=== PATIENT | female | born 1960 | race Caucasian/White ===

== ENCOUNTER 2021-07-02 10:04 | Outpatient (REF) | payer MEDICAID, SELFPAY ==
--- NOTE | ~2021-07-02 | MM_ITS ---
EXAMINATION: MM SCREENING DIGITAL BREAST TOMOSYNTHESIS, BILATERAL CLINICAL INFORMATION: Screening. Asymptomatic. The lifetime risk of breast cancer based on the Tyrer-Cuzick Model is 7%. COMPARISON: Outside mammography: 04/30/2017 ([facility]). TECHNIQUE: Digital breast tomosynthesis is performed in both the craniocaudal and mediolateral oblique views along with computer-aided detection (CAD). Synthesized 2D images are generated from the tomosynthesis. FINDINGS: The breasts are almost entirely fatty (ACR BI-RADS breast composition Category a). Background stromal and fibroglandular densities are stable. There is incidental intramammary node posterior upper outer left breast similar to outside exam. There are scattered predominantly vascular and some benign punctate round calcifications again seen. The axilla and skin contours are unremarkable. MM/MM tomosynthesis screening BI IMPRESSION: No mammographic evidence of malignancy. ASSESSMENT: BI-RADS 2: Benign RECOMMENDATION: Routine annual mammography screening. This patient's information was entered into a reminder system with a target due date for their next mammogram.
== END 2021-07-02 10:05 | disposition home or self-care (01) ==
LOC: HO.MAMMO 10:04
PROVIDERS: PCP Internal Medicine; Visit Provider Internal Medicine
DX: Z12.31 Encounter for screening mammogram for malignant neoplasm of breast (principal)
CPT/HCPCS: 77063; 77067

== ENCOUNTER 2023-02-02 16:23 | Outpatient (REF) | payer MEDICAID, SELFPAY | END 2023-02-02 16:24 | disposition home or self-care (01) | LOC: HO.CHCLNP 16:23 | PROVIDERS: Visit Provider Internal Medicine | DX: R35.0 Frequency of micturition (principal) | CPT/HCPCS: 87086; 87088; 87186 ==

== ENCOUNTER 2023-04-24 13:42 | Outpatient (REF) | payer MEDICARE, MEDICAID, SELFPAY ==
--- NOTE | ~2023-04-24 | MM_ITS ---
EXAMINATION: BONE DENSITOMETRY CLINICAL INDICATION: Unspecified menopausal and perimenopausal disorder. COMPARISON: This is the patient's baseline examination. TECHNIQUE: Using a Zoyi DXA System (software version: 13.1) manufactured by [employer], dual-energy x-ray absorptiometry was performed of the lumbar spine and left hip. The images are of good technical quality. Summary results are attached. FINDINGS: LEFT FEMUR, NECK: BMD 0.799 g/cm2, Z-score -0.5, T-score -1.7, osteopenia. LEFT FEMUR, TOTAL: BMD 0.851 g/cm2, Z-score -0.3, T-score -1.2, osteopenia. AP SPINE L1-L3 (excluding L4): The data of L1-L4 has been changed to exclude the L4 vertebral body, because degenerative sclerosis at this level may cause overestimation of lumbar spine density. BMD 0.854 g/cm2, Z-score -1.4, T-score -2.6, osteoporosis. IDENTIFIED RISK FACTORS: Low calcium intake, menopause, recurrent falls. HISTORY OF FRACTURE: None listed. MEDICATIONS: Calcium. MM/XR DEXA axial skeleton IMPRESSION: 1. DIAGNOSIS: Osteoporosis based on the lowest T-score value of -2.6 in the lumbar spine applying World Health Organization criteria. 2. 10-YEAR FRACTURE RISK PREDICTION, FRAX: According to the guidelines, FRAX calculation should only be performed on patients in the osteopenia bone density category. Therefore, FRAX was not performed on this patient. 3. Treatment Recommendations: NOF guidelines recommend consideration for treatment in postmenopausal women and men age 50 and older presenting with the following: -A hip or vertebral (clinical or morphometric) fracture. -T-score less than or equal to -2.5 at the femoral neck or spine after appropriate evaluation to exclude secondary causes. -Low bone mass at the hip or spine and a 10-year fracture probability by FRAX of greater than or equal to 3% for hip fracture or greater than or equal to 20% for major osteoporotic fracture based on the [place] adapted WHO algorithm. 4. Other Recommendations: All treatment decisions require clinical judgment and consideration of individual patient factors, including patient preferences, comorbidities, previous drug use, risk factors not captured in the FRAX model (e.g. frailty, falls, vitamin D deficiency, increased bone turnover, interval significant decline in bone density) and possible under or overestimation of fracture risk by FRAX. Additional medical evaluation for secondary cause of low bone mineral density may be appropriate. FUTURE SCAN RECOMMENDATION: People with diagnosed cases of osteoporosis or at high risk for fracture should have regular bone mineral density tests. For patients eligible for Medicare, routine testing is allowed once every 2 years. The testing frequency can be increased to one year for patients who have rapidly progressing disease, those who are receiving or discontinuing medical therapy to restore bone mass, or have additional risk factors.
--- NOTE | ~2023-04-24 | MM_ITS ---
EXAMINATION: MM SCREENING DIGITAL BREAST TOMOSYNTHESIS, BILATERAL CLINICAL INFORMATION: Screening. Asymptomatic. COMPARISON: Mammography: This study is compared with prior exams dating back to 2015. TECHNIQUE: Digital breast tomosynthesis is performed in both the craniocaudal and mediolateral oblique views along with computer-aided detection (CAD). Synthesized 2D images are generated from the tomosynthesis. FINDINGS: The breasts are almost entirely fatty (ACR BI-RADS breast composition Category a). There are no significant masses, abnormal calcifications, or other abnormalities. MM/MM tomosynthesis screening BI IMPRESSION: No mammographic evidence of malignancy. ASSESSMENT: BI-RADS BI-RADS 1 - Negative RECOMMENDATION: Routine annual mammography screening. 1 year F/U This examination should not preclude the clinical evaluation of a suspicious palpable abnormality. This patient's information was entered into a reminder system with a target due date for their next mammogram.
== END 2023-04-24 13:43 | disposition home or self-care (01) ==
LOC: HO.MAMMO 13:42
PROVIDERS: PCP Internal Medicine; Visit Provider Advanced Practice Midwife
DX: Z12.31 Encounter for screening mammogram for malignant neoplasm of breast (principal); Z13.820 Encounter for screening for osteoporosis; Z78.0 Asymptomatic menopausal state
CPT/HCPCS: 77063; 77067; 77080

== ENCOUNTER → 2023-04-24 14:30 | Outpatient (BNV) | payer MEDICARE, MEDICAID, SELFPAY | PROVIDERS: PCP Internal Medicine; Visit Provider Radiology Diagnostic Radiology | DX: Z12.31 Encounter for screening mammogram for malignant neoplasm of breast (principal) | CPT/HCPCS: 77063; 77067 ==

== ENCOUNTER 2023-08-31 11:06 | Outpatient (REF) | payer MEDICARE, MEDICAID, SELFPAY ==
[2023-08-31 15:25] LABS: Iron 37 mcg/dL (30-160); Percent Iron Saturation 11 % (15-50); Total Iron Binding Capacity 326 mcg/dL (228-428); Unsaturated Iron Binding 289 ug/dL
[2023-08-31 15:31] LABS: Ferritin 19 ng/mL (10-250)
[2023-08-31 16:04] LABS: Folate 6.2 ng/mL (> or = 4.0); Vitamin B12 386 pg/mL (200-900)
== END 2023-08-31 11:07 | disposition home or self-care (01) ==
LOC: HO.CHCLDS 11:06
PROVIDERS: Visit Provider Internal Medicine
DX: D64.9 Anemia, unspecified (principal)
CPT/HCPCS: 36415; 82607; 82728; 82746; 83540

== ENCOUNTER 2023-09-28 11:12 | Outpatient (AMB) | payer MEDICARE, MEDICAID, SELFPAY ==
--- NOTE | 2023-09-28 11:13 | MHC.OFFVIS ---
Vital Signs 09/28/23 11:21 Height 5 ft Weight 160 lb 14.999 oz BMI 31.4 BP 138/68 Blood Pressure Location Lt brachial Position Sitting Pulse 52 Intake Visit Reasons: gastritis Intake Note: Samantha presents to in office visit today as a new patient for gastritis. CC: Patient c/o epigastric pain, and generalized abdominal pain after eating for many years . She reports hx of H. pylori that was treated and taking Prilosec for many years in the past. She states that about 9 years ago she had an episode of waking up very dizzy and after eating oatmeal vomiting a lot of blood and having to be transfused at the hospital after that. She also c/o constipation. Last colonoscopy at [facility] about a year ago per PT. Electronic Design Engineer Required: Yes Accompanied by: Self / Same As Patient Allergies acetaminophen [Percocet] Allergy (Unknown, Verified 09/28/23 11:34) Hallucinations oxycodone Allergy (Unknown, Verified 09/28/23 11:34) Hallucinations sulindac Allergy (Unknown, Verified 09/28/23 11:34) Hives HPI Comments Details: 63 y.o F who is here for abd pain x years. Reports that >10 y ago had similar abd pain for which she underwent assessment in [place] as well as [facility] and was told she had gastritis and ulcers. Had an EGD at that time as well. Now has returned for the past few years. Reports it is mostly epigastric and goes to flanks. Worse with food intake and at night. Has been given sucralfate by her PCP but not helping as much. Pt also takes meloxicam 15 daily for her arthritis and fibromylagia. [facility] Surgical History (Updated 09/28/23 @ 11:35 by TEDDY Oswald) H/O gastric bypass H/O tubal ligation H/O colonoscopy Family History (Updated 09/28/23 @ 11:36 by TEDDY Oswald) Father Colon cancer Breast cancer Paternal Aunt Breast cancer Sister Breast cancer Sister Colon cancer Social History (Updated 09/28/23 @ 11:38 by TEDDY Oswald) Alcohol intake: former Comment: no alcohol for 40+ years Patient Tobacco Use Status: Former Tobacco user Non Cigarette Tobacco use Quit date or years: 40 years Physical Exam Vital Signs: Last Vital Signs Pulse 52 09/28/23 11:21 BP 138/68 09/28/23 11:21 BMI result Body Mass Index 31.4 NAD Nonicteric Abd soft nondistended A/Ox3, normal gait Hyperpigmentation on face, arms Assessment & Plan Assessment & Plan (1) Abdominal pain: Code(s): R10.9 - Unspecified abdominal pain Category: Medical (2) Gastritis: Code(s): K29.70 - Gastritis, unspecified, without bleeding Category: Medical Plan Ddx include PUD, gastritis, symptomatic gallstones. Plan: - EGD to be booked - Start PPI in the meantime will given ongoing NSAID use - US Abd - Lab work as below Follow up after testing completed Orders: Orders Complete Blood Count no Diff Today K29.70 - Gastritis, unspecified, without bleeding Liver Panel Today R10.9 - Unspecified abdominal pain Immunoglobulin A Today R10.9 - Unspecified abdominal pain US abdomen complete Today R10.9 - Unspecified abdominal pain Transglutaminase IgA Today R10.9 - Unspecified abdominal pain Medications: New omeprazole 20 mg PO DAILY 90 caps 0RF K29.70 - Gastritis, unspecified, without bleeding Coding Level of Care Code New Pt Level 4 (23506) Diagnoses Abdominal pain R10.9 Gastritis K29.70
[2023-09-28 11:21] VITALS: BP 138/68; PULSE 52; BMI 31.4
== END 2023-09-28 12:26 | disposition home or self-care (01) ==
PROVIDERS: PCP Internal Medicine; Visit Provider Internal Medicine
DX: R10.9 Unspecified abdominal pain (principal); K29.70 Gastritis, unspecified, without bleeding
CPT/HCPCS: 99204

== ENCOUNTER → 2023-09-28 11:12 | Outpatient (BNVA) | payer MEDICARE, MEDICAID, SELFPAY | PROVIDERS: PCP Internal Medicine; Visit Provider Internal Medicine | DX: K29.70 Gastritis, unspecified, without bleeding (principal) | CPT/HCPCS: 99202 ==

== ENCOUNTER 2023-10-05 13:06 | Outpatient (AMB) | payer OTHER, MEDICAID, SELFPAY ==
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
[2023-10-05 13:54] VITALS: BP 144/71; PULSE 58; RESP 18; O2SAT 100; BMI 32.1
== END 2023-10-05 14:23 | disposition home or self-care (01) ==
PROVIDERS: PCP Internal Medicine; Referring Provider Internal Medicine; Visit Provider Registered Nurse Emergency
DX: M54.16 Radiculopathy, lumbar region (principal)
CPT/HCPCS: 99204

== ENCOUNTER → 2023-10-05 13:06 | Outpatient (BNVA) | payer OTHER, MEDICAID, SELFPAY | PROVIDERS: PCP Internal Medicine; Referring Provider Internal Medicine; Visit Provider Registered Nurse Emergency ==

== ENCOUNTER 2023-10-08 10:02 | Outpatient (REF) | payer OTHER, MEDICAID, SELFPAY ==
--- NOTE | ~2023-10-08 | US_ITS ---
EXAMINATION: US ABDOMEN COMPLETE CLINICAL INFORMATION: Unspecified abdominal pain. COMPARISON: None available. TECHNIQUE: Real-time imaging of the abdominal viscera. Technically limited study secondary to body habitus. FINDINGS: PANCREAS: Limited visualization due to bowel gas. ABDOMINAL AORTA: Unremarkable. INFERIOR VENA CAVA: Visualized portions are normal. LIVER: Increased hepatic parenchymal heterogeneity and echogenicity could be associated with hepatocellular disease/hepatic steatosis and substantially limits visualization. Correlation with liver function tests and clinical exam recommended to determine further management. The liver contour is normal. GALLBLADDER: Multiple gallstones. No gallbladder wall thickening. COMMON BILE DUCT: Measures 0.6 cm in diameter. RIGHT KIDNEY: No hydronephrosis. No renal calculi. Limited visualization. The kidney measures 10.4 cm in maximum dimension. LEFT KIDNEY: 1.2 cm left mid pole cyst with benign features. There is no indication for follow-up imaging. No hydronephrosis or renal calculi. The kidney measures 8.7 cm in maximum dimension. SPLEEN: 1.4 x 1.3 x 1.3 cm hypoechoic soft tissue mass adjacent to the spleen is characteristic of a splenule. The spleen measures 8.5 cm in maximum dimension. FREE FLUID: None. US/US abdomen complete IMPRESSION: 1. Increased hepatic parenchymal heterogeneity and echogenicity could be associated with hepatocellular disease/hepatic steatosis and substantially limits visualization. Correlation with liver function tests and clinical exam recommended to determine further management. 2. Cholelithiasis. 3. A 1.4 cm hypoechoic soft tissue mass adjacent to the spleen is characteristic of a splenule.
== END 2023-10-08 10:03 | disposition home or self-care (01) ==
LOC: HO.US 10:02
PROVIDERS: PCP Internal Medicine; Visit Provider Internal Medicine
DX: R10.9 Unspecified abdominal pain (principal)
CPT/HCPCS: 76700

== ENCOUNTER 2024-03-05 19:06 | Outpatient (REF) | payer OTHER, SELFPAY | END 2024-03-05 19:07 | disposition home or self-care (01) | LOC: HO.LNP 19:06 | PROVIDERS: Visit Provider Nurse Practitioner | DX: R30.0 Dysuria (principal) | CPT/HCPCS: 87086 ==

== ENCOUNTER 2024-03-13 16:10 | Outpatient (REF) | payer OTHER, SELFPAY ==
[2024-03-13 18:06] LABS: Alanine Aminotransferase 20 U/L (0-31); Albumin Level 4.2 g/dL (3.5-5.0); Alkaline Phosphatase 79 U/L (39-117); Anion Gap 12 (12-20); Aspartate Amino Transferase 23 U/L (5-31); Bilirubin Direct 0.1 mg/dL (0.0-0.5); Bilirubin Total 0.4 mg/dL (0.0-1.0); Blood Urea Nitrogen 9 mg/dL (9-16); Calcium 9.8 mg/dL (8.4-10.2); Carbon Dioxide 23 mmol/L (22-29); Chloride 110 mmol/L (96-108); Estimated Glomerular Filt Rate > 60; Glucose Random 107 mg/dL (60-115); Potassium 4.5 mmol/L (3.3-5.1); Sodium 140 mmol/L (135-145); Total Protein 7.3 g/dL (6.5-8.0)
== END 2024-03-13 16:11 | disposition home or self-care (01) ==
LOC: HO.CHCLDS 16:10
PROVIDERS: PCP Internal Medicine; Visit Provider Nurse Practitioner
DX: R82.90 Unspecified abnormal findings in urine (principal)
CPT/HCPCS: 36415; 80048; 80076

== ENCOUNTER 2024-10-06 12:47 | Outpatient (AMB) | payer OTHER, SELFPAY ==
--- NOTE | 2024-10-06 12:52 | MHC.OFFVIS ---
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/coronary arteriosclerosis Order Control Clerk Blood Bank Required: Yes Order Control Clerk Blood Bank Name: ISAAC [id number] Allergies acetaminophen [Percocet] Allergy (Unknown, Verified 09/28/23 11:34) Hallucinations oxycodone Allergy (Unknown, Verified 09/28/23 11:34) Hallucinations sulindac Allergy (Unknown, Verified 09/28/23 11:34) Hives Medication List - Last Reconciled 10/06/24 by Jesus Prieto MD albuterol sulfate 90 mcg/actuation inhalation amlodipine 5 mg PO DAILY atorvastatin 40 mg PO DAILY ferrous gluconate 324 mg PO QAM fluticasone propionate 44 mcg/actuation inhalation fluticasone propionate 50 mcg/actuation 1 - 2 sprays intranasal QAM levothyroxine 88 mcg PO DAILY losartan 25 mg PO DAILY meloxicam 15 mg PO DAILY metformin 1,000 mg PO metoprolol succinate ER 100 mg PO BID omeprazole 20 mg PO DAILY sennosides (senna) 8.6 mg PO BID PRN sertraline 100 mg PO DAILY sucralfate 1 g PO QID tizanidine mg PO topiramate 25 mg PO BID triamcinolone acetonide 0.1% appl topical HPI Comments Details: Samantha is here for consultation regarding coronary artery disease. Apparently, she had a myocardial infarction in 2008 and had cardiac catheterization but we do not have any information as to what was done. She states that she has been having chest pains for years. This can happen any time. Seems to be with and without exertion. Also gets worse with breathing. During those times, she may feel short of breath and may also feel dizzy. [facility] Medical History (Updated 10/06/24 @ 13:37 by Jesus Prieto MD) Varicose veins of both lower extremities Osteoporosis Spinal stenosis in cervical region Posterior ischemic optic neuropathy Osteopenia Microalbuminuria Asthma Obesity Hypothyroidism Depression Cerebrovascular accident Primary hypertension Diabetes Surgical History (Updated 09/28/23 @ 11:35 by TEDDY Oswald) H/O gastric bypass H/O tubal ligation H/O colonoscopy Family History (Updated 09/28/23 @ 11:36 by TEDDY Oswald) Father Colon cancer Breast cancer Paternal Aunt Breast cancer Sister Breast cancer Sister Colon cancer Social History (Updated 09/28/23 @ 11:38 by TEDDY Oswald) Alcohol intake: former Comment: no alcohol for 40+ years Patient Tobacco Use Status: Former Tobacco user Review of Systems Const Denies weakness ENT Denies dizziness Card Reports chest pain, Denies chest pain with activity, Denies syncope, Denies rapid heart rate, Denies pedal edema, Denies edema, Denies leg edema, Denies lightheadedness, Reports palpitations, Reports dyspnea, Denies dyspnea on exertion and Denies orthopnea Resp Denies cough, Reports dyspnea and Denies dyspnea on exertion GI Denies hematochezia and Denies change in stool character Musc Denies abnormal gait, Denies muscle cramps, Denies muscle weakness, Denies numbness, Denies radiating pain into limb and Denies tingling Neuro Denies abnormal gait, Denies dizziness, Denies syncope, Denies numbness, Denies tingling and Denies weakness Endo Reports palpitations Physical Exam Vital Signs: Last Vital Signs Pulse 87 10/06/24 12:53 BP 118/70 10/06/24 12:53 BMI result Body Mass Index 32.7 Assessment & Plan Assessment & Plan (1) Precordial chest pain: Code(s): R07.2 - Precordial pain Category: Medical (2) Diabetes: Code(s): E11.9 - Type 2 diabetes mellitus without complications Category: Medical (3) Primary hypertension: Code(s): I10 - Essential (primary) hypertension Category: Medical Plan Patient describes history of prior coronary disease/ID with unknown anatomy; longstanding atypical sounding chest pain with associated shortness of breath and dizziness. In a prior exercise stress echocardiogram from [facility] 2022, described to have EKG changes diagnostic of ischemia. Fair exercise capacity but no echocardiographic evidence of ischemia. There was chronotropic incompetence. She had reached 5.2 METS. We will perform comprehensive workup with an echocardiogram and pharmacological stress test with Lexiscan. Further plan pending the above. Orders: Orders CA lexiscan stress w dennise Today R07.2 - Precordial pain NM cardiolite stress test Today R07.2 - Precordial pain CA echo transthoracic complete Today I25.10 - Atherosclerotic heart disease of [place] coronary artery without angina pectoris, R07.2 - Precordial pain Coding Level of Care Code New Pt Level 4 (83150) Complex EM visit Add On G2211 Diagnoses Precordial chest pain R07.2 Diabetes E11.9 Primary hypertension I10
[2024-10-06 12:53] VITALS: BP 118/70; PULSE 87; BMI 32.7
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
--- OUTSIDE RECORDS SUMMARY | 2024-10-06 13:00 | XMS_ITS | Clinical Summary ---
Author Organization [employer] [facility] ity Address [address] [place] [address] Care Team Providers Care Bread Pan Greaser Name Role Phone Unavailable Primary Care Provider Unavailabl e Social History Tobacco Use Types Packs/Day Years Used Date Smoking Tobacco: Never Assessed Comments Unknown Sex and Gender Information Value Date Recorded Sex Assigned at Not on file Legal Sex Female 4:47 PM EST Gender Identity Not on file Sexual Orientation Not on file Plan of Treatment Health Maintenance Due Date Last Done Comments Breast Cancer Screening 1960 DTaP,Tdap,and Td Vaccines (1 - Tdap) 1977 Pneumococcal Vaccine: 50+ Ye ars (1 of 1 - PCV) 2008 Zoster Vaccines (1 of 2) 2008 Colorectal Cancer Screening: Colonoscopy 04/19/2022 Depression Screening 04/19/2022 Hepatitis C Screening 04/19/2022 Osteoporosis Screening (Bone Density Screening) 04/19/2022 Social Influencers of Health Screening 04/19/2022 Falls Risk Assessment 2023 COVID-19 Vaccine ( - 2023-2 5 season) 2024 Influenza Vaccine (Season Ended) 2025 RSV Immunization Adult Patie nts (1 - 1-dose 75+ series) 2033 HIB Vaccines Aged Out No longer eligi ble based on patient's age to complete this topic HPV Vaccines Aged Out No longer eligi ble based on patient's age to complete this topic Hepatitis A Vaccines Aged Out No long er eligible based on patient's age to complete this topic Hepatitis B Vaccines Aged Out No long er eligible based on patient's age to complete this topic IPV Vaccines Aged Out No longer eligi ble based on patient's age to complete this topic MMR Vaccines Aged Out No longer eligi ble based on patient's age to complete this topic Meningococcal ACWY Vaccine Aged Out N o longer eligible based on patient's age to complete this topic Meningococcal B Vaccine Aged Out No l onger eligible based on patient's age to complete this topic RSV Immunization Patients Un gilmer 20 months Aged Out No longer eligible b ased on patient's age to complete this topic Varicella Vaccines Aged Out No longer eligible based on patient's age to complete this topic
--- OUTSIDE RECORDS SUMMARY | 2024-10-06 13:00 | XMS_ITS | Encounter Summary ---
Author Organization [employer] Address [address] [facility] [address] [place] [address] Care Team Providers Care Entry Operator Name Role Phone Anna Hollis MD Primary Care Provider [phone] Encounter Details Date Type Department Care Team ([facility] st Contact Info) Description 07/16/2024 Orders Only [facility] [address] [place] [address] Anna Hollis MD [address] [place], [place] [id number] Depressive disorder (Primary Dx) Social History Tobacco Use Types Packs/Day Years [...] housing situation today? I have karla montalvo 08/02/[address] you li ve. Do you have problems with any of the following? None of the above 08/02/2023 Food Insecurity Answer Date Recorded Within the past 12 months, y ou worried that your food would run out before you got money to buy more: Never True 08/02/2023 Within the past 12 months,th e food you bought just didn't last and you didn't have enough money to get more: Never True Transportation Answer Date Recorded In the past 12 months, has l ack of transportation kept you from medical appts, meetings, work or from getting things needed for daily living? No 08/02/2023 Utilities Answer Date Recorded In the past 12 months, has t he electric, gas, oil or water company threatened to shut off services in your home? No 08/02/2023 Depression Answer Date Recorded Patient Health Questionnaire-2 Score 3 06/05/2024 Comments No Sex and Gender Information Value [...] Description 12/08/2024 1:45 PM EDT Office Visit [facility] [address] [place] [address] Anna Hollis MD [address] [place] [address] documented as of this encounter Visit Diagnoses Diagnosis Depressive disorder- Primary Depressive disorder, not elsewhere classified documented in this encounter Additional Health Concerns Assessment Noted Time PHQ-9 Depression Total Score: 9 06/05/19 25 2:15 PM EST documented as of this encounter Care Teams Entry Operator Relationship Specialty Start Date End Date Anna Hollis MD [address] [place] [address] PCP - General Internal Medicine 05/17/21 documented as of this encounter
--- OUTSIDE RECORDS SUMMARY | 2024-10-06 13:00 | XMS_ITS | Encounter Summary ---
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); Type 2 diabetes mellitus with other circulatory complications (CMS/HCC); Mild intermittent asthma without complication; Other constipation; Depressive disorder Social History Tobacco Use Types Packs/Day Years Used Date Smoking Tobacco: Never Assessed Comments Unknown Sex and Gender Information Value Date Recorded Sex Assigned at Female 03/20/2022 10:27 AM EDT Legal Sex Female 10:27 AM EDT Gender Identity Female 03/20/2022 10:27 AM EDT Sexual Orientation Straight 03/20/2022 10 :27 AM EDT COVID-19 Exposure Response Date Recorded In the last 10 days, have yo u been in contact with someone who was confirmed or suspected to have Coronavirus/COVID-19? No / Unsure 05/30/2022 2:14 PM EST documented as of this encounter Plan of Treatment Upcoming Encounters Date Type Department Care Team ([facility] Contact Info) Description 12/08/2024 1:45 PM EDT Office Visit [facility] [address] [place] [address] Anna Hollis MD [address] [place] [address] documented as of this encounter Visit Diagnoses Diagnosis Cerebrovascular accident (CVA) due to other mechanism ([facility])- Primary Type 2 diabetes mellitus with other circulatory complications ([facility]) Mild intermittent asthma without complication Other constipation Depressive disorder Depressive disorder, not elsewhere classified documented in this encounter Care Teams Correction Officer Supervisor Relationship Specialty Start Date End Date Anna Hollis MD [address] [place] [address] PCP - General Internal Medicine 05/17/21 documented as of this encounter
--- OUTSIDE RECORDS SUMMARY | 2024-10-06 13:00 | XMS_ITS | Clinical Summary ---
Author Organization [employer] Address [address] [facility] [address] [place] [address] Care Team Providers Care Curriculum Development Specialist Name Role Phone Anna Hollis MD Primary Care Provider [phone] Allergies Active Allergy Reactions Criticality Noted Date Comments Acetaminophen 08/04/2014 Other reaction(s): Hives/Skin Rash Oxycodone Rash Low 08/04/2014 Other reaction(s): Hives/Skin Rash, rash Sulindac 05/30/2022 rash Medications * This document contains information received from the source organization and may not represent a complete record from that organization. fluticasone (Flonase) 50 MCG/ACT nasal sprayIndications: Acute maxillary sinusitis, recurrence not specified Administer 1-2 sprays into each nostril in the morning. Shake gently. Before first use, prime pump. After use, clean tip and replace cap. 16 g 11 023 Active Acetaminophen 500 MG capsule Take 2 tablets by mouth every 12 (twelve) hours if needed. 021 Active ketorolac (Acular) 0.5 % ophthalmic solution PLEASE SEE ATTACHED FOR DETAILED DIRECTIONS Active Narcan 4 MG/0.1ML nasal spray ADMINISTER 1 SPRAY INTO ONE NOSTRIL. CALL 911. REPEAT AFTER 2-3 MIN IF NO OR MINIMAL RESPONSE Active glucose blood (FREESTYLE LITE) test stripIndications: Type 2 diabetes mellitus without complication, without long-term current use of insulin ([facility]) USE 1 BY TO SKIN ROUTE EVERY DAY 100 strip 11 023 Active loratadine (Claritin) 10 MG tabletIndications :Seasonal allergies Take 1 tablet (10 mg) by mouth Once daily. 30 tablet 11 023 Active triamcinolone (Kenalog) 0.1 % creamIndications: Pruritus Apply topically if needed in the morning and at bedtime (pain and swelling). 80 g 023 Active Diclofenac Sodium 1 % gel TO APPLY TO THE AFFECTED AREA 3 TIMES A DAY 100 g 1 023 Active methocarbamol (Robaxin) 500 MG tabletIndications :Sciatica of right side Take 1 tablet (500 mg) by mouth every 6 (six) hours for 10 days. 40 tablet 023 Active estradiol (Estrace) 0.1 MG/GM vaginal cream 1g vaginally every night x 2 weeks, then continue 1g vaginally twice a week ongoing 42.5 g 2 023 Active nitroglycerin (Nitrostat) 0.4 MG SL tabletIndications :Coronary artery disease involving citizen [place]atomi heart without angina pectoris, unspecified vessel or lesion type Place 1 tablet (0.4 mg) under the tongue every 5 (five) minutes if needed for chest pain. 30 tablet 12 023 Active alendronate (Fosamax) 70 MG/75ML solution Take 75 mL (70 mg) by mouth every 7 (seven) days. Take in the morning with a full glass of water, on an empty stomach, and do not take anything else by mouth or lie down for the next 30 min. 75 mL 023 Active albuterol (Ventolin HFA) 108 (90 Base) MCG/ACT inhalerIndication s:Mild intermittent asthma without complication INHALE DANDO DOS SOPLIDOS CADA CUATRO HORAS 18 g 024 Active fluticasone (Flovent) 44 MCG/ACT inhalerIndication s:Mild intermittent asthma without complication TOME DOS INHALACIONES POR VIA ORAL DOS VECES AL MEY 10.6 g 024 Active Blood Glucose Monitoring Suppl (FreeStyle Trinity Lite) w/Device kitIndications:Ty pe 2 diabetes mellitus without complication, without long-term current use of insulin ([facility]) Use to test blood sugar 2 times daily 1 kit 024 Active triamcinolone (Kenalog) 0.1 % creamIndications: Dry skin Apply topically 2 times daily. 80 g 11 024 Active atorvastatin (Lipitor) 40 MG tabletIndications :Type 2 diabetes mellitus without complication, without long-term current use of insulin ([facility]) TOME BRIANNA TABLETA TODOS LOS ADAN 90 tablet 3 024 Active hydroquinone 4 % creamIndications: Hyperpigmentation APLIQUE AL AREA AFECTADA DOS VECES AL MEY 85.05 g 024 Active Senna-Time 8.6 MG tabletIndications :Other constipation TAKE 1 TABLET BY MOUTH 2 TIMES EVERY DAY NEEDED FOR CONSTIPATION 180 tablet 3 024 Active topiramate (Topamax) 25 MG tabletIndications :Depressive disorder TOME BRIANNA TABLETA DOS VECES AL MEY 180 tablet 3 024 Active losartan (Cozaar) 50 MG tabletIndications :Essential hypertension TAKE 1/2 TABLETA POR VIA ORAL TODOS LOS ADAN 45 tablet 3 024 Active tiZANidine (Zanaflex) 2 MG tabletIndications :Acute right-sided low back pain with right-sided sciatica Take 1 tablet (2 mg) by mouth every 6 (six) hours if needed for muscle spasms. 30 tablet 3 024 Active metFORMIN (Glucophage) 500 MG tabletIndications :Type 2 diabetes mellitus without complication, without long-term current use of insulin ([facility]) TOME BRIANNA TABLETA DOS VECES AL MEY CON LAS COMIDAS EN LA MANANA & EN LA NOCHE 60 tablet 11 025 Active ammonium lactate (Lac-Hydrin) 12 % lotionIndications :Dry skin dermatitis Apply topically if needed for dry skin. 400 g 025 2025 Active sertraline (Zoloft) 100 MG tabletIndications :Depressive disorder Take 1.5 tablets (150 mg) by mouth Once per day. 45 tablet 11 025 2025 Active levothyroxine (Synthroid, Levoxyl) 88 MCG tabletIndications :Acquired hypothyroidism TOME BRIANNA TABLETA POR VIA ORAL TODOS LOS ADAN 90 tablet 3 025 Active amLODIPine (Norvasc) 5 MG tabletIndications :Primary hypertension TOME BRIANNA TABLETA TODOS LOS ADAN 90 tablet 3 025 Active triamcinolone (Kenalog) 0.1 % creamIndications: Dry skin Apply topically if needed in the morning and at bedtime (pain and swelling). 80 g 2 025 Active famotidine (Pepcid) 20 MG tabletIndications :Gastroesophageal reflux disease without esophagitis Take 1 tablet (20 mg) by mouth 2 times daily. 60 tablet 11 025 2025 Active metoprolol succinate XL (Toprol-XL) 100 MG 24 hr tabletIndications :Primary hypertension TOME 1 TABLETA POR VIA ORAL DOS VECES AL MEY 180 tablet 025 Active meloxicam (Mobic) 15 MG tabletIndications :Acute right-sided low back pain with right-sided sciatica TAKE 1 TABLET BY MOUTH EVERY DAY 30 tablet 11 025 Active omeprazole (PriLOSEC) [address] capsuleIndication s:Epigastric pain 1 capsule 2 times a day. 60 capsule 1 025 Active omeprazole (PriLOSEC) [address] capsule Take 1 capsule by mouth Once daily. 022 2024 Discontinued(R eorder (will not trigger notification to Pharmacy)) ferrous gluconate (Fergon) 324 (38 Fe) MG tabletIndications :Normocytic anemia Take 1 tablet (324 mg) by mouth with breakfast. 30 tablet 11 024 2024 meloxicam (Mobic) 15 MG tabletIndications :Acute right-sided low back pain with right-sided sciatica Take 1 tablet (15 mg) by mouth Once per day. 30 tablet 024 2024 Discontinued Active Problems Problem Noted Date Diagnosed Date Severe episode of recurrent major depressive disorder, without psychotic features 09/29/2024 Assessment & Plan (09/30/2024 3:30 PM EDT): During I[facility] Consult Samantha presenting with depressed mood, Tearful, crying spells , hopelessness, irritable mood, loss of interests/pleasure , sense of isolation/loneliness , isolating, change in appetite or weight reduce appetite, changes in sleep difficulty falling asleep and difficulty staying asleep , psychomotor retardation, fatigue/loss of energy, inappropriate/excessive guilt , difficulty concentrating, indecisiveness; for a period of 6-12 mo, for most or all symptoms in the context of illness or family illness and severe chronic mental health condition. Pt reports her depression has being there on and off. Over the last months sxs described above have been worsening due to her medical condition. Sense of abandonment started at early years during her childhood. Pt recalls episodes where she felt rejected by primary caretakers. Provided empathic listening, validated patient's emotions and experiences and gave a safe space for patient to share her feelings. She will be connected to MH services (OP therapy and psychiatry), clinician will also follow-up to provide additional support. Depression 09/13/2023 Overview (09/13/2023): -refuses MH therapy or Psychiatrist H/O gastric bypass 09/13/2023 Varicose veins of both lower extremities 024 Assessment & Plan (09/04/2023 9:38 PM EDT): Bilateral varicose veins, reports that she has pain in her legs for a while referral sent to [facility]. Hyperpigmentation 08/31/2023 Assessment & Plan (09/04/2023 9:41 PM EDT): Diffuse hyperpigmentation from face to legs, chronic for more then 10 yrs, Referred to venereal disease investigator at [facility]. -Prescribed Hydroquinone 4% cream Osteoporosis 04/27/2023 Other osteoporosis without current pathological fracture 04/27/2023 Arthropathy of lumbar facet joint 06/09/2022 Overview (06/09/2022): -severe facet arthropathy in L3-S1. Seen in scanned X-Rays August 2015 Class 2 obesity 06/09/2022 Hemorrhoids 06/09/2022 Overview (06/09/2022): -internal and external hemorrhoids-Seen in Colonoscopy Jun 2018 Hyperlipidemia 06/09/2022 Microalbuminuria 06/09/2022 Nonproductive cough 06/09/2022 Overview (06/09/2022): -Onset in September 2017. Evaluated by ENT on 01-07-18. 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 Osteopenia 06/09/2022 Overview (06/09/2022): -seen again in Bone densitometry Apr 2017-seen in scanned X-Rays done in August 2015 Arthralgia of hip 06/09/2022 Overview (06/09/2022): -X-Ray August 2019:. Mild degenerative changes left hip joint. Minimal degenerative changes right hip joint. Moderate degenerative changes both SI joints Posterior ischemic optic neuropathy 06/09/2022 Shoulder pain 06/09/2022 Overview (06/09/2022): MRI 2015 ordered by JANENE: Articular surface partial tears in the supraspinatus and infraspinatus Spinal stenosis of cervical region 06/09/2022 Overview (06/09/2022): -mild foraminal narrowin in C3-4 and C6-7. Seen in scanned X-Rays done in August 2015 Asthma 07/25/2021 Hypothyroidism 07/25/2021 Type 2 diabetes mellitus 07/25/2021 Assessment & Plan (09/04/2023 9:40 PM EDT): Controlled. Continue same treatment regimen. Cerebrovascular accident 05/17/2021 Fibromyalgia 05/17/2021 Coronary arteriosclerosis 05/17/2021 Depressive disorder 05/17/2021 Diastolic dysfunction 05/17/2021 Hypertensive disorder 05/17/2021 Leiomyoma 05/17/2021 Encounters * This document contains information received from the source organization and may not represent a complete record from that organization. Date Type Department Care Team Description 09/11/2024 11:15 AM EDT Office Visit [facility] [address] [place] [id number] Anna Hollis MD Epigastric pain (Primary Dx); Type 2 diabetes mellitus without complication, without long-term current use of insulin ([facility]); Gastric ulcer without hemorrhage or perforation, unspecified chronicity 09/11/2024 Travel 09/09/2024 Orders Only [facility] [address] [place] [address] Anna Hollis MD Gastroesophageal reflux disease without esophagitis (Primary Dx); H/O gastric bypass 09/08/2024 Refill [facility] [address] [place] [address] Anna Hollis MD Acute right-sided low back pain with right-sided sciatica 09/03/2024 Telephone [facility] [address] [place] [address] Anna Hollis MD ER Follow-up; Nurse Triage 09/03/2024 Refill [facility] [address] [place] [address] Anna Hollis MD Primary hypertension 08/25/2024 10:45 AM EDT Office Visit [facility] [address] [place] [address] Anna Hollis MD Type 2 diabetes mellitus without complication, without long-term current use of insulin ([facility]) (Primary Dx); Primary hypertension; Dry skin; Depressive disorder; Gastroesophageal reflux disease without esophagitis 08/25/2024 Travel 08/15/2024 Telephone [facility] [address] [place] [address] Anna Hollis MD recall appt (Pt needs appt) 07/22/2024 Refill [facility] [address] [place] [address] Anna Hollis MD Primary hypertension 07/19/2024 Refill [facility] [address] [place] [address] Anna Hollis MD Acquired hypothyroidism 07/16/2024 Orders Only [facility] [address] [place] [address] Anna Hollis MD Depressive disorder (Primary Dx) 07/16/2024 Telephone [facility] [address] [place], [place] [id number] Anna Hollis MD Medication Question from Last 3 Months Immunizations Immunization Administration Dates Next Due Influenza, IIV3, injectable 03/20/2017,1 ,02/03/2014,03/11/20 13,03/08/2010,05/04/2009,02/10/2009,03/10,03/18/2007,03/22/2006,03/22/2005,,04/01/2002 Pneumococcal Polysaccharide PPSV23 06/24/2010 Td (adult), unspecified 06/08/2010 Zoster, Recombinant 07/15/2019 Family History Medical History Relation Name Comments Colon cancer Brother Breast cancer Father Breast cancer Father's Sister Accidental Son 2 other chi ldren in infancy Relation Name Status Comments Brother Father Father's Sister Son Social History Tobacco Use Types Packs/Day Years Used Date Smoking Tobacco: Former Cigarettes Passive Smoke Exposure: Past Smokeless Tobacco: Never Alcohol Use Standard Drinks/Week Comments Never 0 (1 standard drink = 0.6 oz pur e alcohol) Depression Answer Date Recorded Patient Health Questionnaire-9 Score 19 09/30/2024 Patient Health Questionnaire-9 Score 09/30/2024 Last PHQ-9: Questionnaire Data Not on file 0 09/30/2024 Housing Stability Answer Date Recorded What is [...] Answer Date Recorded Patient Health Questionnaire-2 Score 6 09/30/2024 Internet Access Answer Date Recorded Internet Access Q1 Yes 08/25/2024 Internet Access Q2 Not on file 08/25/2024 Comments No Sex and Gender Information Value Date Recorded Sex Assigned at Female 03/20/2022 10:27 AM EDT Legal Sex Female 10:27 AM EDT Gender Identity Female 03/20/2022 10:27 AM EDT Sexual Orientation Straight 03/20/2022 10 :27 AM EDT Last Filed Vital Signs Vital Sign Reading Time Taken Comments Blood Pressure 106/68 09/11/2024 11:26 AM EDT Pulse 58 09/11/2024 11:26 AM EDT Temperature 36.7 ??C (98 ??F) 09/11/2024 11:26 AM EDT Respiratory Rate 20 09/11/2024 11:26 AM EDT Oxygen Saturation 96% 09/11/2024 11:26 AM EDT Inhaled Oxygen Concentration - - Weight 76.7 kg (169 lb) 09/11/2024 11:26 AM EDT Height 152.4 cm (5') 09/11/2024 11:26 AM EDT Body Mass Index 33.01 09/11/2024 11:26 AM EDT Plan of Treatment Upcoming Encounters Date Type Department Care Team (Late st Contact Info) Description 12/08/2024 1:45 PM EDT Office Visit [facility] [address] [place] [address] Anna Hollis MD [address] [place] [address] Health Maintenance Due Date Last Done Comments CT Colonography 1960 FIT DNA/Cologuard 1960 FIT 1960 FOBT 1960 Sigmoidoscopy 1960 Hepatitis C Screening 1976 DTaP/Tdap/Td Vaccines (1 - Tdap) 06/09/2010 06/08/2010 Pneumococcal Vaccine: 50+ Years (2 of 2 - PCV) 06/24/2011 06/24/2010 RSV Patients and Patients Aged 60 years or older (1 - Risk 60-74 years 1-dose series) 2018 Zoster Vaccines (2 of 2) 09/09/2019 07/15/2019 Diabetes: Urine Protein Screening 05/18/2022 05/18/2021 Lipid Panel 05/18/2022 05/18/2021 Diabetes: Foot Exam 01/24/2023 COVID-19 Vaccine ( season) 2024 Influenza Vaccine (#1) 2024 7, 03/18/2015, 02/03/2014, Additional history exists Diabetes: Hemoglobin A1C 02/24/2025 025, 04/08/2024, 08/09/2023, Additional history exists Mammogram 04/24/2025 04/24/2023, 07/02/2021 Alcohol/Substance Use Screening 06/05/2025 06/05/2024 Eye Exam 06/05/2025 06/05/2023 SDOH Screening 08/25/2025 08/25/2024 Tobacco Screening 09/11/2025 09/11/2024 Depression Screening 09/30/2025 09/30/2024, 10/01/19 25 Colonoscopy 08/04/2029 Colorectal Cancer Screening 08/04/2029 Cervical Cancer Screening Discontinued HPV/Cotest Discontinued 01/25/2022 Pap Smear Discontinued 01/25/2022 HIB Vaccines Aged Out No longer eligi [...] patient's age to complete this topic Meningococcal Vaccine Aged Out No antoine anu eligible based on patient's age to complete this topic RSV under 20 months Aged Out No longe r eligible based on patient's age to complete this topic Rotavirus Vaccines Aged Out No longer eligible based on patient's age to complete this topic Procedures Procedure Name Priority Date/Time Associated Diagnosis Comments POCT GLUCOSE Routine 09/11/2024 1:03 PM EDT Type 2 diabetes mellitus without complication, without long-term current use of insulin ([facility]) POCT GLUCOSE Routine 08/25/2024 11:18 AM EDT Type 2 diabetes mellitus without complication, without long-term current use of insulin ([facility]) POCT GLYCATED HEMOGLOBIN, TOTAL Routine 08/25/2024 11:17 AM EDT Type 2 diabetes mellitus without complication, without long-term current use of insulin ([facility]) BI MAMMOGRAM SCREENING TOMOSYNTHESIS BILATERAL Routine 04/24/2023 2:40 PM EST THINPREP IMAGING PAP AND HPV MRNA E6/E7 WITH REFLEX TO HPV 16,18/45 Routine 01/25/2022 3:09 PM EDT ALBUMIN, RANDOM URINE W/CREATININE Routine 05/18/2021 10:12 AM EST LIPID PANEL, STANDARD Routine 05/18/2021 10:12 AM EST from Last 3 Months or Most Recently Relevant to Health Maintenance Results * POCT Glucose (09/11/2024 1:03 PM EDT) Only the most recent of2 resultswithin the time period is included. Glucose Blood, POC 131 60 - 200 mg/dL QC Media Lot # [id number] Lot# Expiration Date 91,025 Comment:random Blood Capillary blood specimen / Unknown 09/11/2024 1:03 PM EDT Anna Hollis MD POINT OF CARE TEST ENTER/ED IT ORDERABLES Final Result * (ABNORMAL) POCT HGB A1C (08/25/2024 11:17 AM EDT) Hemoglobin A1C 6.8(A) 4.0 - 6.0 % QC Media Lot # [id number] Lot# Expiration Date [id number] Blood 08/25/2024 11:1 7 AM EDT us Anna Hollis MD POINT OF CARE TEST ENTER/ED IT ORDERABLES Final Result * BI Mammogram Screening Tomosynthesis Bilateral (04/24/2023 2:40 PM EST) Anatomical Region Laterality Modality Breast Bilateral Mammography 04/24/2023 2:40 PM EST Narrative 05/17/2023 4:21 AM EST ? [facility] [place] ? [address] ?[place] [id number] ? Mammography Report ? Signed ? Patient: Samantha Tuttle ?MR#: [id number] ?? 99 ? : 1960 ?Acct:[id number] ? Age/Sex: 62 / F ?ADM Date: 04/24/23 ? Loc: HO.MAMMO ? Attending Dr: Kalin Strange CNM ? Ordering Physician: KALIN STRANGE CNM ?Results: 1 ?? Negative ? Date of Service: 04/24/23 ?Follow Up: 1 Year From Orig ?? inal Mammogram ? Procedure(s): MM tomosynthesis screening BI ?? Accession Number(s): [id number] ? cc: Anna Hollis MD; KALIN STRANGE CNM ? EXAMINATION: ?? MM SCREENING DIGITAL BREAST TOMOSYNTHESIS, BILATERAL ? CLINICAL INFORMATION: ? Screening. Asymptomatic. ? COMPARISON: ?? Mammography: This study is compared with prior exams dating back to ?? 2014. ? TECHNIQUE: ?? Digital breast tomosynthesis is performed in both the craniocaudal and ?? mediolateral oblique views along with computer-aided detection (CAD). ?? Synthesized 2D images are generated from the tomosynthesis. ? FINDINGS: ?? The breasts are almost entirely fatty (ACR BI-RADS breast composition ?? Category a). ? There are no significant masses, abnormal calcifications, or other ?? abnormalities. ? MM/MM tomosynthesis screening BI ?? IMPRESSION: ?? No mammographic evidence of malignancy. ? ASSESSMENT: ? BI-RADS BI-RADS 1 - Negative ? RECOMMENDATION: ?? Routine annual mammography screening. ? 1 year F/U ? This examination should not preclude the clinical evaluation of a ?? suspicious palpable abnormality. ? This patient's information was entered into a reminder system with a ?? target due date for their next mammogram. ? Dictated By: ?Renetta Bueno MD ? Signed By: ?<Electronically signed by Renetta Bueno MD in OV> ? 05/17/23 0417 ? DD/ 1440 ? TD/TT: ? Chain Link Fence Installer: ? Procedure Note Yoselin, Image - 05/17/2023 [facility] [address] [place] [address] [place] [id number] Mammography Report Signed Patient: Rani Tuttle#: [id number] 99 : 8Acct:[id number] Age/Sex: 62 / FADM Date: 04/24/23 Loc: [facility] Attending Dr: Kalin Strange CNM Ordering Physician: KALIN STRANGEesults: 1 Negative Date of Service: 04/24/23Follow Up: 1 Year From Orig inal Mammogram Procedure(s): MM tomosynthesis screening BI Accession Number(s): [id number] cc: Anna Hollis MD; KALIN STRANGE CNM EXAMINATION: MM SCREENING DIGITAL BREAST TOMOSYNTHESIS, BILATERAL CLINICAL INFORMATION: Screening. Asymptomatic. COMPARISON: Mammography: This study is compared with prior exams dating back to 2015. TECHNIQUE: Digital breast tomosynthesis is performed in both the craniocaudal and mediolateral oblique views along with computer-aided detection (CAD). Synthesized 2D images are generated from the tomosynthesis. FINDINGS: The breasts are almost entirely fatty (ACR BI-RADS breast composition Category a). There are no significant masses, abnormal calcifications, or other abnormalities. MM/MM tomosynthesis screening BI IMPRESSION: No mammographic evidence of malignancy. ASSESSMENT: BI-RADS BI-RADS 1 - Negative RECOMMENDATION: Routine annual mammography screening. 1 year F/U This examination should not preclude the clinical evaluation of a suspicious palpable abnormality. This patient's information was entered into a reminder system with a target due date for their next mammogram. Dictated By: Renetta Bueno MD Signed By: <Electronically signed by Renetta Bueno MD in OV> 05/17/23 0417 DD/ 1440 TD/TT: Chain Link Fence Installer: Kalin Strange CNM IM BI PROCEDURES Edited Result - Final * THINPREP TIS PAP AND HPV mRNA E6/E7 WITH REFLEX TO HPV 16,18/45 (01/25/2022 3:09 PM EDT) Clinical Information: [place] [facility] COMMENT SEE COMMENT [facility] Comment: EXPLANATORY NOTE: ? The Pap is a screening test for cervical cancer. It is ?? not a diagnostic test and is subject to false negative ?? and false positive results. It is most reliable when a ?? satisfactory sample, regularly obtained, is submitted ?? with relevant clinical findings and history, and when ?? the Pap result is evaluated along with historic and ?? current clinical information. ?? COMMENT: This Pap test has been evaluated with computer assisted technology. [facility] Cyt[employer] t: SEE COMMENT [facility] Comment: MXD, CT (ASCP) CT screening location: [address] ??[id number] HPV nRNA E6/E7 Not Detected Not Detected [facility] Comment: Methodology: Pouring Crane Operator-Mediated Amplification This assay detects E6/E7 viral messenger RNA (mRNA) from 14 high-risk HPV types (16,18,31,33,35,39,45,51,52,56,58,59,66,68). ? Cervical sources are required for HPV testing. If a vaginal source from a patient who has had a total hysterectomy with removal of cervix was ?? submitted, please contact the testing laboratory for alternative testing options. ?? For additional information, please refer to http://education.Therasis/faq/JAR427c7 (This link if provided for information/ educational purposes only.) Interpretation/ Result: Negative for intraepithelial lesion or malignancy. [facility] LMP: [facility] Prev. BX: NONE GIVEN [facility] Prev. PAP: NONE GIVEN [facility] SOURCE: None given [facility] Statement Of Adequacy: SEE COMMENT [facility] Comment: Satisfactory for evaluation. Endocervical/transformation zone component absent. 01/25/2022 3:09 PM EDT Kalin MARKS LAB PATHOLOGY ORDERABLES Final Result Performing Organization Address City/State/[facility] Co de Phone Number [facility] [address] * ALBUMIN, RANDOM URINE W/CREATININE (05/18/2021 10:12 AM EST) Microalbumin Urine 0.5 See Note: mg/dL [facility] Comment: Reference Range: ?? Reference Range Not established Microalb/Creat Ratio 4 <30 mcg/mg creat [facility] Comment: ?? The ADA defines abnormalities in albumin excretion as follows: ?? Albuminuria Category ?Result (mcg/mg creatinine) ?? Normal to Mildly increased ?? <30 Moderately increased ? 30-299 ?? Severely increased ? > OR = 300 ?? The ADA recommends that at least two of three specimens collected within a 3-6 month period be abnormal before considering a patient to be within a diagnostic category. Creatinine, Urine 133 20 - 275 mg/dL [facility] 05/18/2021 10:1 2 AM EST Zaheer Lan MD LAB URINE ORDERABL ES Final Result [facility] [address] * (ABNORMAL) LIPID PANEL, STANDARD (05/18/2021 10:12 AM EST) Chol/HDLC Ratio 4.1 <5.0 (calc) [facility] Cholesterol, Total 138 <200 mg/dL [facility] HDL Cholesterol 34(L) > OR = 50 mg/dL [facility] LDL Cholesterol 74 mg/dL (calc) [facility] Comment: Reference range: <100 ?? Desirable range <100 mg/dL for primary prevention; ?? <70 mg/dL for patients with CHD or diabetic patients ?? with > or = 2 CHD risk factors. ?? LDL-C is now calculated using the Turner-Ellis ?? calculation, which is a validated novel method providing ?? better accuracy than the Friedewald equation in the ?? estimation of LDL-C. ?? Turner NUR et al. BARRERA. 2013;310(19): 2475-8712 ?? (http://education.Wengo.Offerpop/faq/XMW210) Non-HDL Cholesterol 104 <130 mg/dL (calc) [facility] Comment: For patients with diabetes plus 1 major ASCVD risk ?? factor, treating to a non-HDL-C goal of <100 mg/dL ?? (LDL-C of <70 mg/dL) is considered a therapeutic ?? option. Triglycerides 206(H) <150 mg/dL [facility] Comment: ?? If a non-fasting specimen was collected, consider repeat triglyceride testing on a fasting specimen if clinically indicated. ?? Tino et al. J. of Clin. Lipidol. 2015;9:129-169. ?? 05/18/2021 10:1 2 AM EST Zaheer Lan MD LAB BLOOD ORDERABL ES Final Result [facility] [address] from Last 3 Months or Most Recently Relevant to Health Maintenance Insurance STANDARD [id number] OPTIONS (HMO D-SNP) Care Teams Curriculum Development Specialist Relationship Specialty Start Date End Date Anna Hollis MD [address] [place] [phone] PCP - General Internal Medicine 05/17/21
--- OUTSIDE RECORDS SUMMARY | 2024-10-06 13:00 | XMS_ITS | Encounter Summary ---
Author Organization [employer] Address [address] [facility] 7t [place] [address] Care Team Providers Care Parking Attendant Name Role Phone Anna Hollis MD Primary Care Provider [phone] Reason for Visit * Reason Onset Date Comments ER Follow-up 09/03/2024 Nurse Triage 09/03/2024 Encounter Details Date Type Department Care Team ([facility] st Contact Info) Description 09/03/2024 Telephone [facility] MEDICINE [address] [place] [address] Anna Hollis MD [address] [place] [address] ER Follow-up; Nurse Triage Social History Tobacco Use Types Packs/Day Years [...] AM EDT documented as of this encounter Miscellaneous Notes * Telephone Encounter - Doris Gomez - 09/12/2024 2:[address] Good [address]. Hollis. TC to general surgery and they stated they don't treat ulcers and suggested refer patient to GI. Please advise, thank you. * Telephone Encounter - Sarina Murcia RN - 09/03/2024 4:35 PM EDT Triage call with [facility] dry cleaner presser [place] [id number]. Pt was seen in [facility] ED 09/02/24 for pleuritic chest pain, abdominal pain and Ct scan showed marginal ulcer. Pt reports continues with the abdominal pain. Pt is taking cephalexin 500mg po as prescribed and has zofran prn for nausea. Pt reportsit is difficult to keep up adequate liquids, Pt is encouraged to drink as much liquids as possible and Pt agrees. ASK apt with Dr. Hollis 09/12/24 @ 1115am. Insurance is not verified as active. Contact Estela Jarrett for verification at this time, Mary Barrientos is not available at this time. Pt is verified as having [employer] insurance. Protocol Used: Abdominal Pain - Female (Adult) Protocol-Based Disposition: See in Office or Video Visit within 2 Weeks Positive Triage Question: * Abdominal pain is a chronic symptom (recurrent or ongoing AND lasting > 4 weeks) * All higher-acuity triage questions were negative Care Advice Discussed: * Rest * Drink Clear Fluids * Reasons To Call Back - Severe pain lasts over 1 hour - Constant pain lasts over 2 hours - Intermittent pains (comes and goes, cramps) lasts over 48 hours - You are - You become worse * Telephone Encounter - Ade Remy - 09/03/2024 3:50 PM EDT Patient calling to report ED visit on : Date: 09/01 Hospital: [facility] Seen for: Pleuritic chest pain, Abdominal pain Symptomatic Yes *if yes message should go to Triage Patient advised will forward to team nurse for follow up [phone] wallisian documented in this encounter Plan of Treatment Upcoming Encounters Date Type Department Care Team (Late st Contact Info) Description 12/08/2024 1:45 PM EDT Office Visit [facility] MED & PEDS [address] [place] [address] Anna Hollis MD [address] [place] [address] documented as of this encounter Visit Diagnoses Not on filedocumented in this encounter Additional Health Concerns Assessment Noted Time PHQ-9 Depression Total Score: 9 06/05/19 25 2:15 PM EST documented as of this encounter Care Teams Parking Attendant Relationship Specialty Start Date End Date Anna Hollis MD [address] [place] [address] PCP - General Internal Medicine 05/17/21 documented as of this encounter
--- OUTSIDE RECORDS SUMMARY | 2024-10-06 13:00 | XMS_ITS | Encounter Summary ---
Author Organization [employer] Address [address] [facility] 7t [place] [address] Care Team Providers Care Commissioned Security Officer Name Role Phone Anna Hollis MD Primary Care Provider [phone] Encounter Details Date Type Department Care Team ([facility] Contact Info) Description 10/11/2023 Orders Only [facility] CHC MED & PEDS [address] [place], [place] [phone] Anna Hollis MD [address] [place], [place] [phone] Social History Tobacco Use Types Packs/Day Years Used Date Smoking Tobacco: Never Passive Smoke Exposure: Never Smokeless Tobacco: Never Alcohol Use Standard Drinks/Week Comments Never 0 (1 standard drink = 0.6 oz pur e alcohol) Depression Answer Date Recorded Patient Health Questionnaire-9 Score 0 06/12/2022 Housing Stability Answer Date Recorded What is your housing situation today? I have karla katia 08/02/[address] you li [...] Answer Date Recorded Patient Health Questionnaire-2 Score 0 06/12/2022 Comments No Sex and Gender Information Value [...] PM EDT Office Visit [facility] MED & PEDS [address] [place] [address] Anna Hollis MD [address] [place] [address] documented as of this encounter Visit Diagnoses Not on filedocumented in this encounter Additional Health Concerns Assessment Noted Time PHQ-9 Depression Total Score: 0 06/12/19 23 2:47 PM EST documented as of this encounter Care Teams Commissioned Security Officer Relationship Specialty Start Date End Date Anna Hollis MD [address] [place] [address] PCP - General Internal Medicine 05/17/21 documented as of this encounter
--- OUTSIDE RECORDS SUMMARY | 2024-10-06 13:00 | XMS_ITS | Encounter Summary ---
Author Organization [employer] Address [address] [facility] 7t [place] [address] Care Team Providers Care Transformer Maker Name Role Phone Anna Hollis MD Primary Care Provider [phone] Encounter Details Date Type Department Care Team ([facility] Contact Info) Description 04/27/2023 Orders Only [facility] CHC MED & PEDS [address] [place], [place] [phone] Anna Hollis MD [address] [place] [address] Other osteoporosis without current pathological fracture Social History Tobacco Use Types Packs/Day Years Used Date Smoking Tobacco: Never Passive Smoke Exposure: Never Smokeless Tobacco: Never Alcohol Use Standard Drinks/Week Comments Never 0 (1 standard drink = 0.6 oz pur e alcohol) Depression Answer Date Recorded Patient Health Questionnaire-9 Score 0 06/12/2022 Housing Stability Answer Date Recorded What is your housing situation today? I have karla montalvo 03/13/[address] you li ve. Do you have problems with any of the following? None of the above 03/13/2023 Food Insecurity Answer Date Recorded Within the past 12 months, y ou worried that your food would run out before you got money to buy more: Never True 03/13/2023 Within the past 12 months,th e food you bought just didn't last and you didn't have enough money to get more: Never True Transportation Answer Date Recorded In the past 12 months, has l ack of transportation kept you from medical appts, meetings, work or from getting things needed for daily living? No 03/13/2023 Utilities Answer Date Recorded In the past 12 months, has t he electric, gas, oil or water company threatened to shut off services in your home? No 03/13/2023 Depression Answer Date Recorded Patient Health Questionnaire-2 [...] Description 12/08/2024 1:45 PM EDT Office Visit [facility] CHC MED & PEDS [address] [place] [address] Anna Hollis MD [address] [place] [address] documented as of this encounter Visit Diagnoses Diagnosis Other osteoporosis without current pathological fracture documented in this encounter Additional Health Concerns Assessment Noted Time PHQ-9 Depression Total Score: 0 06/12/19 23 2:47 PM EST documented as of this encounter Care Teams Transformer Maker Relationship Specialty Start Date End Date Anna Hollis MD [address] [place] [address] PCP - General Internal Medicine 05/17/21 documented as of this encounter
--- OUTSIDE RECORDS SUMMARY | 2024-10-06 13:00 | XMS_ITS | Encounter Summary ---
Author Organization [employer] [facility] Address [address] [place] [address] 7 [place] [address] Care Team Providers Care Locker Room Attendant Name Role Phone Anna Hollis MD Primary Care Provider [phone] Encounter Details Date Type Department Care Team ([facility] Contact Info) Description 06/08/2022 Orders Only [facility] MED & PEDS [address] [place] [address] Xiomara Turner LPN Social History Tobacco Use Types Packs/Day Years Used Date Smoking Tobacco: Never Assessed Depression Answer Date Recorded Patient Health Questionnaire-9 Score 0 06/12/2022 Depression Answer Date Recorded Patient Health Questionnaire-2 Score 0 06/12/2022 Comments Unknown Sex and Gender Information Value [...] Encounters Date Type Department Care Team (Late Contact Info) Description 12/08/2024 1:45 PM EDT Office Visit [facility] MED & PEDS [address] [place] [address] Anna Hollis MD [address] [place] [address] documented as of this encounter Procedures Procedure Name Priority Date/Time Associated Diagnosis Comments CULTURE, URINE, ROUTINE Routine 02/02/2023 12:00 AM EDT documented in this encounter Results * Culture, Urine, Routine (02/02/2023 12:00 AM EDT) Urine specimen obtained by clean catch procedure / Unknown 02/02/2023 02/02/2023 Comment:[facility] Narrative [facility] - 02/04/2023 8:34 AM EDT Escherichia coli Quant 50,000 to 100,000 cfu/mL Escherichia coli: Ampicillin 8(S) Escherichia coli: Ceftriaxone <=0.25(S) Escherichia coli: Gentamicin <=1(S) Escherichia coli: Levofloxacin <=0.12(S) Escherichia coli: Nitrofurantoin <=16(S) Escherichia coli: Trimethoprim/Sulfamethoxazole <=20(S) Specimen Source: Urine clean catch Anna Hollis MD LAB MICROBIOLOGY - GENERAL ORDERABLES Final Result [facility] [address] [place] [phone] documented in this encounter Visit Diagnoses Not on filedocumented in this encounter Care Teams Locker Room Attendant Relationship Specialty Start Date End Date Anna Hollis MD [address] [place] [phone] PCP - General Internal Medicine 05/17/21 documented as of this encounter
--- OUTSIDE RECORDS SUMMARY | 2024-10-06 13:00 | XMS_ITS | Encounter Summary ---
Author Organization [employer] Address [address] [facility] [address] 7t [place] [address] Care Team Providers Care Control Room Helper Name Role Phone Anna Hollis MD Primary Care Provider [phone] Encounter Details Date Type Department Care Team ([facility] Contact Info) Description 10/11/2023 Telephone [facility] MEDICINE [address] [place], [place] [phone] Jocelin Kohler, RN [address] [place] [address] Social History Tobacco Use Types Packs/Day Years [...] Description 12/08/2024 1:45 PM EDT Office Visit [facility] MED & PEDS [address] [place] [address] Anna Hollis MD [address] [place] [address] documented as of this encounter Visit Diagnoses Not on filedocumented in this encounter Additional Health Concerns Assessment Noted Time PHQ-9 Depression Total Score: 0 06/12/19 23 2:47 PM EST documented as of this encounter Care Teams Control Room Helper Relationship Specialty Start Date End Date Anna Hollis MD [address] [place] [address] PCP - General Internal Medicine 05/17/21 documented as of this encounter
--- OUTSIDE RECORDS SUMMARY | 2024-10-06 13:00 | XMS_ITS | Encounter Summary ---
Author Organization [employer] Address [address] [facility] 7t [place] [address] Care Team Providers Care Pharmaceutical Assistant Name Role Phone Anna Hollis MD Primary Care Provider [phone] Reason for Visit * Reason Comments Med Refill Encounter Details Date Type Department Care Team ([facility] Contact Info) Description 06/17/2022 Refill [facility] MED & PEDS [address] [place], [place] [phone] Anna Hollis MD [address] [place] [address] Acquired hypothyroidism (Primary Dx) Social History Tobacco Use Types Packs/Day Years Used Date Smoking Tobacco: Never Passive Smoke Exposure: Never Smokeless Tobacco: Never Depression Answer Date Recorded Patient Health Questionnaire-9 [...] suspected to have Coronavirus/COVID-19? No / Unsure 06/12/2022 1:46 PM EST documented as of this encounter Plan of Treatment Upcoming Encounters Date Type Department Care Team ([facility] Contact Info) Description 12/08/2024 1:45 PM EDT Office Visit [facility] CHC MED & PEDS [address] [place] [address] Anna Hollis MD [address] [place] [address] documented as of this encounter Visit Diagnoses Diagnosis Acquired hypothyroidism- Primary Unspecified hypothyroidism documented in this encounter Additional Health Concerns Assessment Noted Time PHQ-9 Depression Total Score: 0 06/12/19 23 2:47 PM EST documented as of this encounter Care Teams Pharmaceutical Assistant Relationship Specialty Start Date End Date Anna Hollis MD [address] [place] [address] PCP - General Internal Medicine 05/17/21 documented as of this encounter
--- OUTSIDE RECORDS SUMMARY | 2024-10-06 13:00 | XMS_ITS | Encounter Summary ---
Author Organization [employer] Address [address] [facility] 7 [place] [address] Care Team Providers Care Associate Professor Of Biostatistics Name Role Phone Anna Hollis MD Primary Care Provider [phone] Reason for Visit * Reason Onset Date Comments Nurse Triage 10/11/2023 Encounter Details Date Type Department Care Team ([facility] Contact Info) Description 10/11/2023 Telephone [facility] CHC MED & PEDS [address] [place] [address] Anna Hollis MD [address] [place] [address] Nurse Triage Social History Tobacco Use Types [...] encounter Miscellaneous Notes * Telephone Encounter - Jocelin Kohler RN - 10/11/2023 2:53 PM EDT called pt to triage, spoke to pt through [employer] carnival worker. pt states has been without her Tirosint for 4 days due to a mistake made on her last script. pt states [facility] wants the script to read pill,not capsule as that is what they have available. pt states feels like a lump in her throat and mildhoarseness at times, requesting appt with PCP to evaluate or for labs to check Thyroid. advised no available appt to schedule at this time, and advised home care: rest, fluids, light diet, small bites, and call back if worsening or new concerns. seek ER care if severe symptoms. will task to [facility] team nurses to address need to change the script with PCP. pt understands and agrees with plan. insurance verified. Protocol Used: Swallowing Difficulty (Adult) Protocol-Based Disposition: See in Office or Video Visit within 2 Weeks Positive Triage Questions: * Swallowing difficulty is a chronic symptom (recurrent or ongoing AND present > 4 weeks) * Preventing pills getting stuck in esophagus, questions about * All higher-acuity triage questions were negative Care Advice Discussed: * Reasons To Call Back - You become worse. * Reasons To Call Back - You have more questions * Telephone Encounter - Shaunna Fay - 10/11/2023 2:11 PM EDT Symptom: Swallowing Difficulty Outcome: Transfer to a nurse or provider NOW! Reason: Trouble breathing through the mouth, has not taken levothyroxine (Synthroid, Levoxyl) 88 MCG tablet in 4 days The caller accepted this outcome Please contact pt at [phone] (loading checker) documented in this encounter Plan of Treatment Upcoming Encounters Date Type Department Care Team ([facility] st Contact Info) Description 12/08/2024 1:45 PM EDT Office Visit [facility] MED & PEDS [address] [place] [address] Anna Hollis MD [address] [place] [address] documented as of this encounter Visit Diagnoses Diagnosis Acquired hypothyroidism Unspecified hypothyroidism documented in this encounter Additional Health Concerns Assessment Noted Time PHQ-9 Depression Total Score: 0 06/12/19 23 2:47 PM EST documented as of this encounter Care Teams Associate Professor Of Biostatistics Relationship Specialty Start Date End Date Anna Hollis MD [address] [place] [address] PCP - General Internal Medicine 05/17/21 documented as of this encounter
--- OUTSIDE RECORDS SUMMARY | 2024-10-06 13:00 | XMS_ITS | Encounter Summary ---
Author Organization [employer] [facility] Address [address] [facility] 7t [place] [address] Care Team Providers Care Riverboat Captain Name Role Phone Anna Hollis MD Primary Care Provider [phone] Reason for Visit * Reason Comments Med Change Request Encounter Details Date Type Department Care Team ([facility] Contact Info) Description 07/04/2022 Refill [facility] MED & PEDS [address] [place], [place] [phone] Anna Hollis MD [address] [place] [address] Essential hypertension Social History Tobacco Use Types Packs/Day Years [...] suspected to have Coronavirus/COVID-19? No / Unsure 07/04/2022 11:48 AM EST documented as of this encounter Plan of Treatment Upcoming Encounters Date Type Department Care Team ([facility] Contact Info) Description 12/08/2024 1:45 PM EDT Office Visit [facility] CHC MED & PEDS [address] [place] [address] Anna Hollis MD [address] [place] [address] documented as of this encounter Visit Diagnoses Diagnosis Essential hypertension Unspecified essential hypertension documented in this encounter Additional Health Concerns Assessment Noted Time PHQ-9 Depression Total Score: 0 06/12/19 23 2:47 PM EST documented as of this encounter Care Teams Riverboat Captain Relationship Specialty Start Date End Date Anna Hollis MD [address] [place] [address] PCP - General Internal Medicine 05/17/21 documented as of this encounter
--- OUTSIDE RECORDS SUMMARY | 2024-10-06 13:00 | XMS_ITS | Encounter Summary ---
Author Organization [employer] Address [address] [facility] 7t [place] [address] Care Team Providers Care Room Worker Name Role Phone Anna Hollis MD Primary Care Provider [phone] Encounter Details Date Type Department Care Team ([facility] Contact Info) Description 08/27/2023 Orders Only [facility] CHC MED & PEDS [address] [place], [place] [phone] Anna Hollis MD [address] [place], [place] [phone] Normocytic anemia (Primary Dx) Social History Tobacco Use Types [...] Description 12/08/2024 1:45 PM EDT Office Visit [facility] MED & PEDS [address] [place], [place] [phone] Anna Hollis MD [address] [place] [address] documented as of this encounter Procedures Procedure Name Priority Date/Time Associated Diagnosis Comments VITAMIN B12/FOLATE, SERUM PANEL Routine 08/31/2023 11:08 AM EDT Normocytic anemia IRON AND TOTAL IRON BINDING CAPACITY Routine 08/31/2023 11:08 AM EDT Normocytic anemia FERRITIN Routine 08/31/2023 11:08 AM EDT Normocytic anemia documented in this encounter Results * Vitamin B12/Folate, Serum Panel (08/31/2023 11:08 AM EDT) Vitamin B12 386 200 - 900 pg/mL [facility] Comment:NORMAL 200-900 PG/ML INDETERMINATE 160-199 PG/ML DEFICIENT < 160 PG/ML Folate 6.2 > or = 4.0 ng/mL [facility] Comment:Reference Values:> o r = 4.0 ng/mL< 4.0 ng/mL suggests folate deficiency Methotrexate, aminopterin and folinic acid(leucovorin) are chemotherapeutic agents whose molecularstructures are similar to folate; therefore, the Architectfolate assay cannot be used for patients using these drugs. 08/31/2023 11:0 8 AM EDT 08/31/2023 2:43 PM EDT us Anna Hollis MD LAB BLOOD ORDERABLES Final Result Performing Organization Address [place]/ZIP Co de Phone Number [facility] [address] [place] [phone] * (ABNORMAL) Iron And Total Iron Binding Capacity (08/31/2023 11:08 AM EDT) Iron 37 30 - 160 mcg/dL [facility] Total Iron Binding Capacity 326 228 - 428 mcg/dL [facility] Percent Iron Saturation 11(L) 15 - 50 % [facility] Unsaturated Iron Binding 289 ug/dL [facility] Blood Venous blood specimen / Unknown 08/31/2023 11:08 AM EDT 08/31/2023 2:43 PM EDT us Anna Hollis MD LAB BLOOD ORDERABLES Final Result Performing Organization Address [place]/ZIP Co de Phone Number [facility] [address] [place] [phone] * Ferritin (08/31/2023 11:08 AM EDT) Ferritin 19 10 - 250 ng/mL [facility] Blood Venous blood specimen / Unknown 08/31/2023 11:08 AM EDT 08/31/2023 2:43 PM EDT us Anna Hollis MD LAB BLOOD ORDERABLES Final Result Performing Organization Address [place]/ZIP Co de Phone Number [facility] [address] [place] [phone] documented in this encounter Visit Diagnoses Diagnosis Normocytic anemia- Primary Unspecified anemia documented in this encounter Additional Health Concerns Assessment Noted Time PHQ-9 Depression Total Score: 0 06/12/19 2:47 PM EST documented as of this encounter Care Teams Room Worker Relationship Specialty Start Date End Date Anna Hollis MD [address] [place] [address] PCP - General Internal Medicine 05/17/21 documented as of this encounter
--- OUTSIDE RECORDS SUMMARY | 2024-10-06 13:00 | XMS_ITS | Encounter Summary ---
Author Organization [employer] Address [address] [facility] 7t [place] [address] Care Team Providers Care Kettle Coordinator Name Role Phone Anna Hollis MD Primary Care Provider [phone] Reason for Visit * Reason Comments Med Change Request Encounter Details Date Type Department Care Team ([facility] Contact Info) Description 08/31/2023 Refill [facility] CHC MED & PEDS [address] [place], [place] [phone] Roseanna Latif MD [address] [place] [address] Hyperpigmentation Social History Tobacco Use Types Packs/Day Years [...] Description 12/08/2024 1:45 PM EDT Office Visit [facility] CHC MED & PEDS [address] [place] [address] Anna Hollis MD [address] [place] [address] documented as of this encounter Visit Diagnoses Diagnosis Hyperpigmentation Other dyschromia documented in this encounter Additional Health Concerns Assessment Noted Time PHQ-9 Depression Total Score: 0 06/12/19 23 2:47 PM EST documented as of this encounter Care Teams Kettle Coordinator Relationship Specialty Start Date End Date Anna Hollis MD [address] [place] [address] PCP - General Internal Medicine 05/17/21 documented as of this encounter
--- OUTSIDE RECORDS SUMMARY | 2024-10-06 13:00 | XMS_ITS | Encounter Summary ---
Author Organization [employer] Address [address] [facility] 7t [place] [address] Care Team Providers Care Center Medical And Lab Director Name Role Phone Anna Hollis MD Primary Care Provider [phone] Encounter Details Date Type Department Care Team ([facility] st Contact Info) Description 03/14/[address] [facility] [address] [place] [address] Areli Miller Social History Tobacco Use Types Packs/Day Years [...] Description 12/08/2024 1:45 PM EDT Office Visit [facility] MED & PEDS [address] [place] [address] Anna Hollis MD [address] [place] [address] documented as of this encounter Visit Diagnoses Not on filedocumented in this encounter Additional Health Concerns Assessment Noted Time PHQ-9 Depression Total Score: 0 06/12/19 23 2:47 PM EST documented as of this encounter Care Teams Center Medical And Lab Director Relationship Specialty Start Date End Date Anna Hollis MD [address] [place] [address] PCP - General Internal Medicine 05/17/21 documented as of this encounter
--- OUTSIDE RECORDS SUMMARY | 2024-10-06 13:00 | XMS_ITS | Encounter Summary ---
Author Organization [employer] [facility] Address [address] [place] [address] 7 [place] [address] Care Team Providers Care Inclusion Specialist Name Role Phone Anna Hollis MD Primary Care Provider [phone] Encounter Details Date Type Department Care Team ([facility] Contact Info) Description 02/05/2023 Orders Only [facility] MED & PEDS [address] [place] [address] Anna Hollis MD [address] [place] [address] Urinary frequency (Primary Dx) Social History Tobacco Use Types [...] Upcoming Encounters Date Type Department Care Team ([facility] Contact Info) Description 12/08/2024 1:45 PM EDT Office Visit [facility] MED & PEDS [address] [place] [address] Anna Hollis MD [address] [place] [address] documented as of this encounter Visit Diagnoses Diagnosis Urinary frequency- Primary documented in this encounter Additional Health Concerns Assessment Noted Time PHQ-9 Depression Total Score: 0 06/12/19 23 2:47 PM EST documented as of this encounter Care Teams Inclusion Specialist Relationship Specialty Start Date End Date Anna Hollis MD [address] [place] [address] PCP - General Internal Medicine 05/17/21 documented as of this encounter
--- OUTSIDE RECORDS SUMMARY | 2024-10-06 13:00 | XMS_ITS | Encounter Summary ---
Author Organization [employer] Address [address] [facility] 7t [place] [address] Care Team Providers Care Group Care Worker Name Role Phone Anna Hollis MD Primary Care Provider [phone] Encounter Details Date Type Department Care Team ([facility] st Contact Info) Description 04/03/2023 Orders Only [facility] CH[facility] MED & PEDS [address] [place], [place] [phone] Anna Hollis MD [address] [place] [address] Primary hypertension (Primary Dx); Coronary artery disease involving [place] heart without angina pectoris, unspecified vessel or lesion type Social History Tobacco Use Types Packs/Day Years [...] Upcoming Encounters Date Type Department Care Team ([facility] st Contact Info) Description 12/08/2024 1:45 PM EDT Office Visit [facility] CH[facility] MED & PEDS [address] [place] [address] Anna Hollis MD [address] [place] [address] documented as of this encounter Procedures Procedure Name Priority Date/Time Associated Diagnosis Comments BI MAMMOGRAM SCREENING TOMOSYNTHESIS BILATERAL Routine 04/24/2023 2:40 PM EST documented in this encounter Results * BI Mammogram Screening Tomosynthesis Bilateral (04/24/2023 2:40 PM EST) Anatomical Region Laterality Modality Breast Bilateral Mammography 04/24/2023 2:40 PM EST Narrative 05/17/2023 4:21 AM EST ? [facility] [place] ? [address] ?[place] [address] ? Mammography Report ? Signed ? Patient: Tuttle,Samantha ?MR#: [id number] ?? 99 ? : 1960 ?Acct:[id number] ? Age/Sex: 62 / F ?ADM Date: 12/05/23 ? Loc: HO.MAMMO ? Attending Dr: Senait Strange CNM ? Ordering Physician: SENAIT STRANGE CNM ?Results: 1 ?? Negative ? Date of Service: 04/24/23 ?Follow Up: 1 Year From Orig ?? inal Mammogram ? Procedure(s): MM tomosynthesis screening BI ?? Accession Number(s): [id number] ? cc: Anna Hollis MD; SENAIT STRANGE CNM ? EXAMINATION: ?? MM SCREENING [...] by Renetta Bueno MD in OV> ? // 0417 ? DD/DT: 04/24/ 1440 ? TD/TT: ? Director Of Patient Safety: ? Procedure Note Donotuseinterpreter, Image - 05/17/2023 [facility] [address] [place] [address] Mammography Report Signed Patient: Kerry TuttleR#: [id number] 99 : 8Acct:[id number] Age/Sex: 62 / FADM Date: 04/24/23 Loc: ISAIAHEsperanzaVERO Attending Dr: Senait Strange CNM Ordering Physician: SENAIT STRANGEesults: 1 Negative Date of Service: 04/24/23Follow Up: 1 Year From Orig inal Mammogram Procedure(s): MM tomosynthesis screening BI Accession Number(s): [id number] cc: Anna Hollis MD; SENAIT STRANGE CNM EXAMINATION: MM SCREENING DIGITAL BREAST [...] in OV> 05/17/23 0417 DD/ 1440 TD/TT: Director Of Patient Safety: Senait MARKS IM BI PROCEDURES Edited Result - Final documented in this encounter Visit Diagnoses Diagnosis Primary hypertension- Primary Unspecified essential hypertension Coronary artery disease involving [place] heart without angina pectoris, unspecified vessel or lesion type documented in this encounter Additional Health Concerns Assessment Noted Time PHQ-9 Depression Total Score: 0 06/12/19 2:47 PM EST documented as of this encounter Care Teams Group Care Worker Relationship Specialty Start Date End Date Anna Hollis MD [address] [place] [address] PCP - General Internal Medicine 05/17/21 documented as of this encounter
== END 2024-10-06 13:18 | disposition home or self-care (01) ==
LOC: HO.HCS 12:48
PROVIDERS: PCP Internal Medicine; Visit Provider Internal Medicine
DX: R07.2 Precordial pain (principal); E11.9 Type 2 diabetes mellitus without complications; I10 Essential (primary) hypertension
CPT/HCPCS: 93010; 99204; G2211

== ENCOUNTER → 2024-10-06 12:47 | Outpatient (BNVA) | payer OTHER, SELFPAY | PROVIDERS: PCP Internal Medicine; Visit Provider Internal Medicine | DX: I25.10 Atherosclerotic heart disease of native coronary artery without angina pectoris (principal); I25.2 Old myocardial infarction; R07.2 Precordial pain; E11.9 Type 2 diabetes mellitus without complications; I10 Essential (primary) hypertension | CPT/HCPCS: 93005; 99202 ==

== ENCOUNTER → 2024-10-30 10:33 | Outpatient (REF) | payer OTHER, SELFPAY ==
--- NOTE | 2024-10-30 10:38 | CA_ITS ---
Transthoracic Echocardiogram Patient (Last, First, Middle): Samantha Tuttle, Gender: Female Date of : 1960 Age: 64 Procedure Date: 10/30/2024 Procedure Type: Transthoracic Echocardiogram Location: OP Height: 152.4 cm Weight: 75.75 kg BSA: 1.73 m2 Heart Rate: bpm BP: 118 / 70 mmHg Personnel Generalist Manager: GERARDO Referring MD: Jesus Prieto MD Sales Service Supervisor: Trent Crawley MD Symptoms: I25.10 - Atherosclerotic heart disease of [place] coronary artery without... Study Quality: Fair ECG Rhythm: Sinus Conclusions: - 1. Normal LV ejection fraction of 60 65% with impaired relaxation filling pattern 2. Normal cardiac valvular Dopplers 3. No gross pericardial effusion Findings Left Ventricle Normal left ventricular size, thickness, and systolic function. The visually estimated ejection fraction is between 60-65%. Spectral Doppler is indicative of an impaired relaxation filling pattern. E/E prime ratio is between 8 and 15 consistent with indeterminate filling pressures. Right Ventricle Normal right ventricular cavity size and systolic function. Atria Both atria are normal in size. There is no evidence of interatrial shunt. Aortic Valve The aortic valve was not well visualized. There is no aortic valve stenosis. There is no aortic valve regurgitation. Mitral Valve Likely normal mitral valve structure and function. There is trace mitral valve regurgitation. There is no mitral valve stenosis. Pulmonic Valve The pulmonic valve was not well visualized. Tricuspid Valve Likely normal tricuspid valve structure and function. Tricuspid regurgitation envelope is inadequate for calculation of right ventricular systolic pressure. Normal right atrial pressure. Great Vessels The pulmonary artery was not well visualized. There is no dilatation of the ascending aorta measuring 3.20 cm. Venous The inferior vena cava is normal in size and collapses greater than 50% with inspiration. Pericardium/Pleural There is no evidence of pericardial effusion. Prior Study Comparison No prior study available for comparison. Measurements 2D Linear Measurements IVSd: 0.95 0.6-0.9/0.6-1.0 cm LVIDd: 4.33 3.9-5.3/4.2-5.9 cm LVIDd Index: 2.50 2.4-3.2/2.2-3.1 cm/m2 LVIDs: 2.90 2.0-3.6 cm LVPWd: 0.91 0.7-1.1 cm LA Diam: 4.00 2.7-3.8/3.0-4.0 cm LAIDs Index: 2.31 1.5-2.3 cm/m2 LV Mass: 162.11 67-162/88-224 g LV Mass Index: 93.71 43-95/49-115 g/m2 LVOT Diam: 2.10 3.0+(-)1.3 cm 2D Systolic Function EF 4C: 64.10 >55% EF 2C: 63.10 >55% EF BiP: 63.60 >55% Mitral Valve MV Pk E: 0.72 MV PK A: 0.68 MV Decel Time: 306.00 E/A: 1.10 E'Lateral: 6.85 E'Medial: 4.79 E/E' Med: 15.00 E/E' Lat: 10.50 PHT: 90.00 MVA PHT: 2.44 Decel [place]: 2.35 Aortic Valve AoV Pk Cirilo: 1.34 AoV Mn Cirilo: 0.88 AoV VTI: 0.33 AoV Pk Grad: 7.00 Aov Mn Grad: 4.00 EMANI Cont.VTI: 2.15 LVOT LVOT Pk Cirilo: 0.80 LVOT Mn Cirilo: 0.50 LVOT VTI: 0.20 LVOT Pk Grad: 3.00 LVOT Mn Grad: 1.00 LVOT Diam: 2.10 LVOT Area: 3.46 Diastolic Function MV Pk E: 0.72 MV Pk A: 0.68 E/A: 1.10 E'Medial: 4.79 E/E' Med: 15.00 E' Laterial: 6.85 E/E' Lat: 10.50 Right Ventricle TAPSE (mm): 22.20 TVS' Cirilo: 8.38 Tricuspid Valve RA Press: 3.00 Great Vessels Aorta Sinus of Valsalva: 2.92 2.0-3.[address] Ridge: 2.14 1.7-3.4 cm Ao Asc: 3.20 2.1-3.4 cm Updated in Other Vendor System with Status of Final Trent Crawley MD electronically signed on 10/31/2024 2:23:29 PM with status of Final
--- OUTSIDE RECORDS SUMMARY | 2024-10-30 12:20 | XMS_ITS | Encounter Summary ---
Author Organization [facility] Address [address] [place] [address] 7 [place] [address] Care Team Providers Care Bottle Filler Name Role Phone Anna Hollis MD Primary Care Provider [phone] Encounter Details Date Type Department Care Team (Late Contact Info) Description 06/08/2022 Orders Only [facility] MED & PEDS [address] [place] [address] Xiomara Turner LPN Social History Tobacco Use [...] 1:45 PM EDT Office Visit [facility] MED & PED[facility] [address] [place] [address] Anna Hollis MD [address] [place] [address] documented as of this encounter Procedures Procedure Name Priority Date/Time Associated Diagnosis Comments CULTURE, URINE, ROUTINE Routine 02/02/2023 12:00 AM EDT documented in this encounter Results * Culture, Urine, Routine (02/02/2023 12:00 AM EDT) Urine specimen obtained by clean catch procedure / Unknown 02/02/2023 02/02/2023 Comment:UACC Narrative [facility] - 02/04/2023 8:34 AM EDT Escherichia coli Quant 50,000 to 100,000 cfu/mL Escherichia coli: Ampicillin 8(S) Escherichia coli: Ceftriaxone <=0.25(S) Escherichia coli: Gentamicin <=1(S) Escherichia coli: Levofloxacin <=0.12(S) Escherichia coli: Nitrofurantoin <=16(S) Escherichia coli: Trimethoprim/Sulfamethoxazole <=20(S) Specimen Source: Urine clean catch Anna Hollis MD LAB MICROBIOLOGY - GENERAL ORDERABLES Final Result [facility] [address] [place] [address] [phone] documented in this encounter Visit Diagnoses Not on filedocumented in this encounter Care Teams Bottle Filler Relationship Specialty Start Date End Date Anna Hollis MD [address] [place] [address] PCP - General Internal Medicine 05/17/21 documented as of this encounter
== END ==
LOC: HO.CARD 10:33
PROVIDERS: PCP Internal Medicine; Visit Provider Internal Medicine
DX: R07.2 Precordial pain (principal); I25.10 Atherosclerotic heart disease of native coronary artery without angina pectoris
CPT/HCPCS: 93306

== ENCOUNTER → 2024-10-30 10:38 | Outpatient (BNV) | payer OTHER, SELFPAY | PROVIDERS: PCP Internal Medicine; Visit Provider Internal Medicine Cardiovascular Disease | DX: I25.10 Atherosclerotic heart disease of native coronary artery without angina pectoris (principal) | CPT/HCPCS: 93306 ==

== ENCOUNTER 2024-11-17 10:14 | Outpatient (AMB) | payer OTHER, SELFPAY ==
--- NOTE | 2024-11-17 10:20 | MHC.OFFVIS ---
Vital Signs 11/17/24 10:31 Height 5 ft Weight 171 lb BMI 33.4 BP 96/65 Blood Pressure Location Lt brachial Position Sitting Pulse 65 Pulse Oximetry (%) 99 Oxygen Delivery Method Room Air Intake Visit Reasons: Gastroesophageal reflux disease (GERD) Intake Note: Patient follow up for GERD. Patient cc: abdominal pain with bloating, dizziness, GERD at bedtime, tiredness and between diarrhea and constipation. Patient was dx with Anemia 3 months ago by her PCP and is taking med. Assistant Corporate Controller Required: Yes Assistant Corporate Controller Name: [facility] Interpeter Accompanied by: Spouse Allergies acetaminophen (Percocet) Allergy (Unknown, Verified 11/17/24 10:34) Hallucinations oxycodone Allergy (Unknown, Verified 11/17/24 10:34) Hallucinations sulindac Allergy (Unknown, Verified 11/17/24 10:34) Hives HPI Comments Details: 63 y.o F who is here for abd pain x years. Reports that >10 y ago had similar abd pain for which she underwent assessment in [place] as well as [facility] and was told she had gastritis and ulcers. Had an EGD at that time as well. Now has returned for the past few years. Reports it is mostly epigastric and goes to flanks. Worse with food intake and at night. Has been given sucralfate by her PCP but not helping as much. Pt also takes meloxicam 15 daily for her arthritis and fibromylagia. 11/17/24: Lost to follow up after 2023. Did not show up for EGD in Jan 2024 as had gone to attend her son in [place] who is chronically ill due to cancer. Now has been referred back to us for anemia. and gastritis. Was seen in [facility] in august [address] abd/pel with IV contrast showed GJ anastomosis thickening with possible ulcer. Plan was to admit for surgical eval but pt was discharged as she was feeling better after GI cocktail. Today, reports epigastric pain and nausea is persistent. Has stopped meloxicam as of last month. Takes omeprazole twice a day but with closed capsules. In addition, also had blood work done through her PCP which showed anemia. Pt started on iron. Sister: colon ca likely late 50s. [facility] Medical History (Updated 11/17/24 @ 10:47 by Ariela Pool MD) Varicose veins of both lower extremities Osteoporosis Spinal stenosis in cervical region Posterior ischemic optic neuropathy Osteopenia Microalbuminuria Asthma Obesity Hypothyroidism Depression Cerebrovascular accident Primary hypertension Diabetes Surgical History (Updated 11/17/24 @ 16:17 by Ariela Pool MD) H/O gastric bypass H/O tubal ligation H/O colonoscopy Family History Father Colon cancer Breast cancer Paternal Aunt Breast cancer Sister Breast cancer Sister Colon cancer Social History Alcohol intake: former Comment: no alcohol for 40+ years Patient Tobacco Use Status: Former Tobacco user Physical Exam Vital Signs: Last Vital Signs Pulse 65 11/17/24 10:31 BP 96/65 11/17/24 10:31 Pulse Ox 99 11/17/24 10:31 Oxygen Delivery Method Room Air 11/17/24 10:31 BMI result Body Mass Index 33.4 Assessment & Plan Assessment & Plan (1) Abdominal pain: Code(s): R10.9 - Unspecified abdominal pain Category: Medical (2) Gastritis: Code(s): K29.70 - Gastritis, unspecified, without bleeding Category: Medical (3) H/O gastric bypass: Code(s): Z98.84 - Bariatric surgery status Category: Surgical Plan Pt with question of marginal ucler on outside hosp imaging. Will book for urgent EGD. Anemia likely 2/2 UGI losses. Had colo at [facility] in 2022. Plan: - Urgent EGD to be booked - Recheck CBC and iron panel - Celiac serology Follow up after EGD Orders: Orders Complete Blood Count no Diff Today D64.9 - Anemia, unspecified Ferritin Today D64.9 - Anemia, unspecified TSH reflex Free T4 Today D64.9 - Anemia, unspecified Immunoglobulin A Today D64.9 - Anemia, unspecified IRON PROFILE Today D64.9 - Anemia, unspecified Transglutaminase IgA Today D64.9 - Anemia, unspecified Coding Level of Care Code Est Pt Level 4 (46284) Complex EM visit Add On G2211 Diagnoses Abdominal pain R10.9 Gastritis K29.70 H/O gastric bypass Z98.84
[2024-11-17 10:31] VITALS: BP 96/65; PULSE 65; O2SAT 99; BMI 33.4
--- OUTSIDE RECORDS SUMMARY | 2024-11-17 10:51 | XMS_ITS | Encounter Summary ---
Author Organization [facility] Address [address] [place] [address] 7 [place] [address] Care Team Providers Care Aquatic Biologist Name Role Phone Anna Hollis MD Primary Care Provider [phone]- [phone] Encounter Details Date Type Department Care Team (Late Contact Info) Description 06/08/2022 Orders Only [facility] MED & PEDS [address] [place] [address] Xiomara Turner LPN Social History Tobacco Use [...] [facility] MED & PEDS [address] [place] [address] Anna Hollis MD [address] [place] [address] documented as of this encounter Procedures Procedure Name Priority Date/Time Associated Diagnosis Comments CULTURE, URINE, ROUTINE Routine 02/02/2023 12:00 AM EDT documented in this encounter Results * Culture, Urine, Routine (02/02/2023 12:00 AM EDT) Urine specimen obtained by clean catch procedure / Unknown 02/02/2023 02/02/2023 Comment:UACC Narrative [facility] - 02/04/2023 8:34 AM EDT Escherichia coli Quant 50,000 to 100,000 cfu/mL Escherichia coli: Ampicillin 8(S) Escherichia coli: Ceftriaxone <=0.25(S) Escherichia coli: Gentamicin <=1(S) Escherichia coli: Levofloxacin <=0.12(S) Escherichia coli: Nitrofurantoin <=16(S) Escherichia coli: Trimethoprim/Sulfamethoxazole <=20(S) Specimen Source: Urine clean catch Anna Hollis MD LAB MICROBIOLOGY - GENERAL ORDERABLES Final Result [facility] [address] [place] [address] [phone] documented in this encounter Visit Diagnoses Not on filedocumented in this encounter Care Teams Aquatic Biologist Relationship Specialty Start Date End Date Anna Hollis MD [address] [place] [address] PCP - General Internal Medicine 05/17/21 documented as of this encounter
== END 2024-11-17 10:56 | disposition home or self-care (01) ==
LOC: HO.HGI 10:14
PROVIDERS: PCP Internal Medicine; Visit Provider Internal Medicine
DX: R10.9 Unspecified abdominal pain (principal); K29.70 Gastritis, unspecified, without bleeding; Z98.84 Bariatric surgery status
CPT/HCPCS: 99214; G2211

== ENCOUNTER 2024-11-17 10:14 | Outpatient (REF) | payer OTHER, SELFPAY ==
[2024-11-17 11:41] LABS: Hematocrit 39.1 % (37.0-47.0); Hemoglobin 12.1 g/dl (12.0-16.0); Mean Corpuscular HGB Conc 30.9 g/dl (31.0-35.0); Mean Corpuscular Hemoglobin 25.3 pg (27.0-33.0); Mean Corpuscular Volume 81.8 fL (80.0-98.0); Mean Platelet Volume 11.5 fL (9.4-12.3); Platelet Count 180 X10*3/uL (160-400); Red Blood Count 4.78 X10*6/uL (4.20-5.50); Red Cell Distribution Width 14.6 % (11.0-16.0); White Blood Count 8.2 X10*3/uL (4.8-10.8)
[2024-11-17 12:12] LABS: Iron 42 mcg/dL (30-160); Percent Iron Saturation 12 % (15-50); Total Iron Binding Capacity 349 mcg/dL (228-428); Unsaturated Iron Binding 307 ug/dL
[2024-11-17 12:30] LABS: Ferritin 22 ng/mL (10-250); TSH reflex Free T4 0.61 uIU/mL (0.32-4.0)
[2024-11-18 07:13] LABS: Immunoglobulin A 339 mg/dL (70-320)
[2024-11-18 21:28] LABS: Transglutaminase IgA <1.0 U/mL
== END 2024-11-17 10:15 | disposition home or self-care (01) ==
LOC: HO.LAB 10:14
PROVIDERS: PCP Internal Medicine; Visit Provider Internal Medicine
DX: R10.13 Epigastric pain (principal); R11.0 Nausea; K29.70 Gastritis, unspecified, without bleeding; D64.9 Anemia, unspecified; Z98.84 Bariatric surgery status
CPT/HCPCS: 36415; 82728; 82784; 83540; 84443; 85027; 86364; 99212

== ENCOUNTER 2025-01-09 14:35 | Outpatient (REF) | payer OTHER, SELFPAY ==
--- NOTE | ~2025-01-09 | XR_ITS ---
EXAMINATION: XR HIP, RIGHT CLINICAL INFORMATION: pain COMPARISON: None available. TECHNIQUE: AP and oblique views of the right hip. FINDINGS: No acute cortical disruption or malalignment. Sclerosis along the reticular surface of the acetabulum. Asymmetric joint space narrowing. Sclerosis and the sacroiliac joint. No lytic or blastic lesions. XR/XR hip RT min 2V IMPRESSION: Mild osteoarthrosis/osteoarthritis, right hip. Sacroiliitis, right-sided. Electronically signed by: Tanner Phillips MD 01/09/2025 03:16 PM EDT
--- NOTE | ~2025-01-09 | XR_ITS ---
EXAMINATION: XR KNEE BILATERAL CLINICAL INFORMATION: b/l knee pain COMPARISON: None available. TECHNIQUE: AP view in standing position both knees. Lateral views both knees. FINDINGS: No acute cortical disruption or malalignment. Mild joint space narrowing involving medial lateral compartment. No gross suprapatellar bursa joint effusion. No lytic or blastic lesions. Osteopenia versus osteoporosis. XR/XR Knee Yasir 3V IMPRESSION: Mild bicompartmental osteoarthrosis/osteoarthritis. Electronically signed by: Tanner Phillips MD 01/09/2025 03:18 PM EDT
--- OUTSIDE RECORDS SUMMARY | 2025-01-09 14:38 | XMS_ITS | Encounter Summary ---
Author Organization [employer] Address [address] [facility] 7t [place] [address] Care Team Providers Care Lathe Turner Name Role Phone Anna Hollis MD Primary Care Provider [phone] Encounter Details Date Type Department Care Team ([facility] st Contact Info) Description 06/08/2022 Orders Only [facility] MED & PEDS [address] [place], [place] [phone] Xiomara Turner LPN Social History Tobacco Use [...] as of this encounter Plan of Treatment Not on file documented as of this encounter Procedures Procedure Name Priority Date/Time Associated Diagnosis Comments CULTURE, URINE, ROUTINE Routine 02/02/2023 12:00 AM EDT documented in this encounter Results * Culture, Urine, Routine (02/02/2023 12:00 AM EDT) Urine specimen obtained by clean catch procedure / Unknown 02/02/2023 02/02/2023 Comment:UACC Narrative [facility] - 02/04/2023 8:34 AM EDT Escherichia coli Quant 50,000 to 100,000 cfu/mL Escherichia coli: Ampicillin 8(S) Escherichia coli: Ceftriaxone <=0.25(S) Escherichia coli: Gentamicin <=1(S) Escherichia coli: Levofloxacin <=0.12(S) Escherichia coli: Nitrofurantoin <=16(S) Escherichia coli: Trimethoprim/Sulfamethoxazole <=20(S) Specimen Source: Urine clean catch Anna Hollis MD LAB MICROBIOLOGY - GENERAL ORDERABLES Final Result [facility] [address] [place] [address] [phone] documented in this encounter Visit Diagnoses Not on filedocumented in this encounter Care Teams Lathe Turner Relationship Specialty Start Date End Date Anna Hollis MD [address] [place] [address] PCP - General Internal Medicine 05/17/21 documented as of this encounter
--- OUTSIDE RECORDS SUMMARY | 2025-01-09 14:38 | XMS_ITS | Clinical Summary ---
Author Organization [employer] [facility] Address [address] [place] [address] Care Team Providers Care Riveting Machine Operator Automatic Name Role Phone Unavailable Primary Care Provider [...] 2) 2008 Colorectal Cancer Screening: Colonoscopy 04/19/2022 Hepatitis C Screening 04/19/2022 Osteoporosis Screening (Bone Density Screening) 04/19/2022 Social Influencers of Health Screening 04/19/2022 Falls Risk Assessment 2023 COVID-19 Vaccine (1 - 2023-2 5 season) 2024 Depression Screening 05/21/2024 Influenza Vaccine (#1) 2025 RSV Immunization Adult Patie nts (1 [...]
== END 2025-01-09 14:36 | disposition home or self-care (01) ==
LOC: HO.XRAY 14:35
PROVIDERS: PCP Internal Medicine; Visit Provider Student in an Organized Health Care Education/Training Program
DX: M25.551 Pain in right hip (principal); M25.552 Pain in left hip; M25.561 Pain in right knee; M25.562 Pain in left knee; G89.29 Other chronic pain
CPT/HCPCS: 73502; 73562

== ENCOUNTER → 2025-01-09 14:41 | Outpatient (BNV) | payer OTHER, SELFPAY | PROVIDERS: PCP Internal Medicine; Visit Provider Radiology Diagnostic Radiology | DX: M25.551 Pain in right hip (principal); M25.561 Pain in right knee; M25.562 Pain in left knee | CPT/HCPCS: 73502; 73562 ==

== ENCOUNTER 2025-02-02 08:41 | Outpatient (REF) | payer OTHER, SELFPAY ==
--- OUTSIDE RECORDS SUMMARY | 2025-02-02 09:57 | XMS_ITS | Encounter Summary ---
Author Organization [employer] Address [address] [facility] 7t [place] [address] Care Team Providers Care Mold Injector Name Role Phone Anna Hollis MD Primary Care Provider [phone] Encounter Details Date Type Department Care Team ([facility] st Contact Info) Description 04/03/2023 Orders Only [facility] PEDS [address] [place], [place] [phone] Anna Hollis MD [address] [place] [address] Primary hypertension (Primary Dx); Coronary artery disease involving squaxin heart without angina pectoris, unspecified vessel or [...] PM EST Narrative 05/17/2023 4:21 AM EST [facility] [place] [address] Mammography Report Signed Patient: Samantha Tuttle MR#: [id number] 99 : 1960 Acct:[id number] Age/Sex: 62 / F ADM Date: 04/24/23 Loc: [place] Attending Dr: Senait Strange CNM Ordering Physician: SENAIT STRANGE CNM Results: 1 Negative Date of Service: 04/24/23 Follow Up: 1 Year From Orig ina Mammogram Procedure(s): MM tomosynthesis screening BI Accession Number(s): [id number] cc: Anna Hollis MD; SENAIT STRANGE CNM [...] Bueno MD in OV> 05/17/23 0417 DD/ 144 TD/TT: Senior Process Control Tech: Procedure Note Donotuseinterpreter, Image - 05/17/2023 [facility] [address] [place] [address] Mammography Report Signed Patient: Kerry TuttleR#: [id number] 99 : 8Acct:[id number] Age/Sex: 62 / FADM Date: 04/24/23 Loc: ISAIAHEsperanzaVERO Attending Dr: Senait Strange CNM Ordering Physician: SENAIT STRANGEesults: 1 Negative Date of Service: 04/24/23Follow Up: 1 Year From Orig ina Mammogram Procedure(s): MM tomosynthesis screening BI Accession Number(s): [id number] cc: Anna Hollis MD; SENAIT STRANGE CNM [...] in OV> 05/17/23 0417 DD/ 1440 TD/TT: Senior Process Control Tech: Senait MARKS IM BI PROCEDURES Edited Result - Final documented in this encounter Visit Diagnoses Diagnosis Primary hypertension- Primary Unspecified essential hypertension Coronary artery disease involving squaxin heart without angina pectoris, unspecified vessel or lesion type documented in this encounter Additional Health Concerns Assessment Noted Time PHQ-9 Depression Total Score: 0 06/12/19 23 2:47 PM EST documented as of this encounter Care Teams Mold Injector Relationship Specialty Start Date End Date Anna Hollis MD [address] [place] [address] PCP - General Internal Medicine 05/17/21 documented as of this encounter
--- OUTSIDE RECORDS SUMMARY | 2025-02-02 09:57 | XMS_ITS | Encounter Summary ---
Author Organization [employer] Address 75 [facility] 7 [place] [address] Care Team Providers Care Data Communications Analyst Name Role Phone Anna Hollis MD Primary Care Provider [phone] Reason for Visit * Reason Comments Med Refill Encounter Details Date Type Department Care Team ([facility] st Contact Info) Description 06/03/2022 Refill [facility] CHC MED & PEDS 505 [place], [place] [phone] Anna Hollis MD 505 [place], [place] [phone] Cerebrovascular accident (CVA) due to other mechanism [...] on file documented as of this encounter Visit Diagnoses Diagnosis Cerebrovascular accident (CVA) due to other mechanism (CMS/HCC)- Primary Type 2 diabetes mellitus with other circulatory complications (CMS/HCC) Mild intermittent asthma without complication Other constipation Depressive disorder Depressive disorder, not elsewhere classified documented in this encounter Care Teams Data Communications Analyst Relationship Specialty Start Date End Date Anna Hollis MD [address] [place] [address] PCP - General Internal Medicine 05/17/21 documented as of this encounter
--- OUTSIDE RECORDS SUMMARY | 2025-02-02 09:57 | XMS_ITS | Encounter Summary ---
Author Organization [employer] Address [address] [facility] 7t [place] [address] Care Team Providers Care Business Transformation Consultant Name Role Phone Anna Hollis MD Primary Care Provider [phone] Encounter Details Date Type Department Care Team ([facility] st Contact Info) Description 04/27/2023 Orders Only [facility] CHC MED & PEDS 505 [place], [place] [phone] Anna Hollis MD 505 [place], [place] [phone] Other osteoporosis without current pathological fracture Social [...] documented as of this encounter Care Teams Business Transformation Consultant Relationship Specialty Start Date End Date Anna Hollis MD [address] [place] [address] PCP - General Internal Medicine 05/17/21 documented as of this encounter
--- OUTSIDE RECORDS SUMMARY | 2025-02-02 09:57 | XMS_ITS | Encounter Summary ---
Author Organization [employer] Address 75 [facility] 7t [place] [address] Care Team Providers Care Rink Rat Name Role Phone Anna Hollis MD Primary Care Provider [phone] Reason for Visit * Reason Onset Date Comments ER Follow-up 09/03/2024 Nurse Triage 09/03/2024 Encounter Details Date Type Department Care Team ([facility] st Contact Info) Description 09/03/2024 Telephone [facility] MEDICINE [address] [place] [address] Anna Hollis MD 505 [place], [place] [phone] ER Follow-up; Nurse Triage Social History Tobacco [...] 09/03/2024 4:35 PM EDT Triage call with [facility] hand [place] [id number]. Pt was seen in [facility] ED 09/02/24 for pleuritic chest pain, abdominal [...] ED visit on : Date: 09/01 Hospital: [facility] Seen for: Pleuritic chest pain, Abdominal pain Symptomatic Yes *if yes message should go to Triage Patient advised will forward to team nurse for follow up [phone] australian documented in this encounter Plan of Treatment Not on file documented as of this encounter Visit Diagnoses Not on filedocumented in this encounter Additional Health Concerns Assessment Noted Time PHQ-9 Depression Total Score: 9 06/05/19 25 2:15 PM EST documented as of this encounter Care Teams Rink Rat Relationship Specialty Start Date End Date Anna Hollis MD [address] [place] [address] PCP - General Internal Medicine 05/17/21 documented as of this encounter
--- OUTSIDE RECORDS SUMMARY | 2025-02-02 09:57 | XMS_ITS | Encounter Summary ---
Author Organization [employer] Address 75 [facility] 7t [place] [address] Care Team Providers Care Biochemistry Technologist Name Role Phone Anna Hollis MD Primary Care Provider [phone] Reason for Visit * Reason Comments Med Change Request Encounter Details Date Type Department Care Team ([facility] Contact Info) Description 08/31/[address] [facility] CHC MED & PEDS 505 [place], [place] [phone] Roseanna Latif MD 505 [place] [address] Hyperpigmentation Social History Tobacco Use Types Packs/Day [...] documented as of this encounter Care Teams Biochemistry Technologist Relationship Specialty Start Date End Date Anna Hollis MD [address] [place] [address] PCP - General Internal Medicine 05/17/21 documented as of this encounter
--- OUTSIDE RECORDS SUMMARY | 2025-02-02 09:57 | XMS_ITS | Clinical Summary ---
Author Organization [employer] [facility] ity Address [address] [place] [address] Care Team Providers Care Manufacturing Quality Engineer Name Role Phone Unavailable Primary Care Provider [...] Health Screening 04/19/2022 Falls Risk Assessment 2023 Depression Screening 05/21/2024 COVID-19 Vaccine ( - 2023-2 5 season) 2025 Influenza Vaccine (#1) 2025 RSV Immunization Adult [...]
--- OUTSIDE RECORDS SUMMARY | 2025-02-02 09:57 | XMS_ITS | Patient Health Record ---
Author Organization [facility] Address [address] [facility], [address] [place] [address] Support Name Relationship Address Phone JOE TESFAYE Guarantor Unknown Unavailable Reason For Referral No Information Plan Of Treatment No Information
--- OUTSIDE RECORDS SUMMARY | 2025-02-02 09:57 | XMS_ITS | Encounter Summary ---
Author Organization [employer] Address [address] [place] [address] 7 [place] [address] Care Team Providers Care Franchise Sales Manager Name Role Phone Anna Hollis MD Primary Care Provider [phone] Encounter Details Date Type Department Care Team ([facility] st Contact Info) Description 02/05/2023 Orders Only [facility] CHC MED & PEDS 505 [place], [place] [phone] Anna Hollis MD 505 [place] [address] Urinary frequency (Primary Dx) Social History Tobacco [...] documented as of this encounter Care Teams Franchise Sales Manager Relationship Specialty Start Date End Date Anna Hollis MD 505 [place] [address] PCP - General Internal Medicine 05/17/21 documented as of this encounter
--- OUTSIDE RECORDS SUMMARY | 2025-02-02 09:57 | XMS_ITS | Encounter Summary ---
Author Organization [employer] Address 75 [facility] 7 [place] [address] Care Team Providers Care Bar Welder Name Role Phone Anna Hollis MD Primary Care Provider [phone] Reason for Visit * Reason Comments Med Change Request Encounter Details Date Type Department Care Team ([facility] Contact Info) Description 10/07/2024 Refill [facility] CHC MED & PEDS 505 [place], [place] [phone] Anna Hollis MD 505 [place] [address] Epigastric pain Social History Tobacco Use Types Packs/Day Years Used Date Smoking Tobacco: Former Cigarettes Passive Smoke Exposure: Past Smokeless Tobacco: Never Alcohol Use Standard Drinks/Week Comments Never 0 (1 standard drink = 0.6 oz pur e alcohol) Depression Answer Date Recorded Patient Health Questionnaire-9 Score 19 09/30/2024 Patient Health Questionnaire-9 Score 19 09/30/2024 Last PHQ-9: Questionnaire Data Not on [...] as of this encounter Visit Diagnoses Diagnosis Epigastric pain Abdominal pain, epigastric documented in this encounter Additional Health Concerns Assessment Noted Time PHQ-9 Depression Total Score: 19 025 9:53 AM EDT documented as of this encounter Care Teams Bar Welder Relationship Specialty Start Date End Date Anna Hollis MD [address] [place] [address] PCP - General Internal Medicine 05/17/21 documented as of this encounter
--- OUTSIDE RECORDS SUMMARY | 2025-02-02 09:57 | XMS_ITS | Encounter Summary ---
Author Organization [employer] Address 75 [facility] 7 [place] [address] Care Team Providers Care Design Center Consultant Name Role Phone Anna Hollis MD Primary Care Provider [phone] Reason for Visit * Reason Comments Med Refill Encounter Details Date Type Department Care Team ([facility] st Contact Info) Description 06/17/2022 Refill [facility] CHC MED & PEDS 505 [place], [place] [phone] Anna Hollis MD 505 [place] [address] Acquired hypothyroidism (Primary Dx) Social History Tobacco [...] documented as of this encounter Care Teams Design Center Consultant Relationship Specialty Start Date End Date Anna Hollis MD [address] [place] [phone] PCP - General Internal Medicine 05/17/21 documented as of this encounter
--- OUTSIDE RECORDS SUMMARY | 2025-02-02 09:57 | XMS_ITS | Encounter Summary ---
Author Organization [employer] Address 75 [facility] 7t [place] [address] Care Team Providers Care Vehicle Insurance Agent Name Role Phone Anna Hollis MD Primary Care Provider [phone] Encounter Details Date Type Department Care Team ([facility] st Contact Info) Description 06/08/2022 Orders Only [facility] CHC MED & PEDS [address] [place], [place] [phone] Xiomara Turner LPN Social History Tobacco Use [...] procedure / Unknown 02/02/2023 02/02/2023 Comment:UACC Narrative [facility] - 02/04/2023 8:34 AM EDT Escherichia coli Quant 50,000 to 100,000 cfu/mL Escherichia coli: Ampicillin 8(S) Escherichia coli: Ceftriaxone <=0.25(S) Escherichia coli: Gentamicin <=1(S) Escherichia coli: Levofloxacin <=0.12(S) Escherichia coli: Nitrofurantoin <=16(S) Escherichia coli: Trimethoprim/Sulfamethoxazole <=20(S) Specimen Source: Urine clean catch Anna Hollis MD LAB MICROBIOLOGY - GENERAL ORDERABLES Final Result [facility] [address] [place] [address] [phone] documented in this encounter Visit Diagnoses Not on filedocumented in this encounter Care Teams Vehicle Insurance Agent Relationship Specialty Start Date End Date Anna Hollis MD [address] [place] [address] PCP - General Internal Medicine 05/17/21 documented as of this encounter
--- OUTSIDE RECORDS SUMMARY | 2025-02-02 09:57 | XMS_ITS | Encounter Summary ---
Author Organization [employer] Address [address] [facility] 7t [place] [address] Care Team Providers Care Cigarette Machine Operator Name Role Phone Anna Hollis MD Primary Care Provider [phone] Encounter Details Date Type Department Care Team ([facility] st Contact Info) Description 12/22/2024 Orders Only [facility] CHC MED & PEDS [address] [place], [place] [phone] Provider, MD Darren Social History Tobacco Use Types Packs/Day Years [...] Procedure Name Priority Date/Time Associated Diagnosis Comments HM COLONOSCOPY Routine 08/04/2022 2:27 PM EDT documented in this encounter Results * Hm Colonoscopy (08/04/2022 2:27 PM EDT) Historical Provider HEALTH MAINTENANCE Final Result documented in this encounter Visit Diagnoses Not on filedocumented in this encounter Additional Health Concerns Assessment Noted Time PHQ-9 Depression Total Score: 19 025 9:53 AM EDT documented as of this encounter Care Teams Cigarette Machine Operator Relationship Specialty Start Date End Date Anna Hollis MD [address] [place] [address] PCP - General Internal Medicine 05/17/21 documented as of this encounter
--- OUTSIDE RECORDS SUMMARY | 2025-02-02 09:57 | XMS_ITS | Encounter Summary ---
Author Organization [employer] Address [address] [facility] 7 [place] [address] Care Team Providers Care Private Household Worker Name Role Phone Anna Hollis MD Primary Care Provider [phone] Reason for Visit * Reason Comments Med Change Request Encounter Details Date Type Department Care Team ([facility] Contact Info) Description 07/04/2022 Refill [facility] CHC MED & PEDS 505 [place], [place] [phone] Anna Hollis MD 505 [place] [address] Essential hypertension Social History Tobacco Use Types [...] documented as of this encounter Care Teams Private Household Worker Relationship Specialty Start Date End Date Anna Hollis MD [address] [place] [address] PCP - General Internal Medicine 05/17/21 documented as of this encounter
--- OUTSIDE RECORDS SUMMARY | 2025-02-02 09:57 | XMS_ITS | Encounter Summary ---
Author Organization [email or web address] Address [address] [facility] 7t [place] [address] Care Team Providers Care Records Analyst Name Role Phone Anna Hollis MD Primary Care Provider [phone] Encounter Details Date Type Department Care Team ([facility] st Contact Info) Description 10/11/2023 Telephone [facility] MEDICINE 230 [place], [place] [phone] Jocelin Kohler, RN 230 [place] [address] Social History Tobacco Use Types Packs/Day Years [...] documented as of this encounter Care Teams Records Analyst Relationship Specialty Start Date End Date Anna Hollis MD 505 [place] [address] PCP - General Internal Medicine 05/17/21 documented as of this encounter
--- OUTSIDE RECORDS SUMMARY | 2025-02-02 09:57 | XMS_ITS | Encounter Summary ---
Author Organization [employer] Address [address] [facility] 7t [place] [address] Care Team Providers Care Casing Wringer Operator Name Role Phone Anna Hollis MD Primary Care Provider [phone] Encounter Details Date Type Department Care Team ([facility] st Contact Info) Description 03/14/2023 Abstract [facility] MEDICINE [address] [place] [address] Areli Miller Social History Tobacco Use Types [...] documented as of this encounter Care Teams Casing Wringer Operator Relationship Specialty Start Date End Date Anna Hollis MD [address] [place] [address] PCP - General Internal Medicine 05/17/21 documented as of this encounter
--- OUTSIDE RECORDS SUMMARY | 2025-02-02 09:57 | XMS_ITS | Encounter Summary ---
Author Organization [employer] Address [address] [facility] 7t [place] [address] Care Team Providers Care Candle Molder Hand Name Role Phone Anna Hollis MD Primary Care Provider [phone] Encounter Details Date Type Department Care Team ([facility] st Contact Info) Description 07/16/2024 Orders Only [facility] MEDICINE [address] [place] [address] Anna Hollis MD 505 [place], [place] [phone] Depressive disorder (Primary Dx) Social History Tobacco [...] documented as of this encounter Care Teams Candle Molder Hand Relationship Specialty Start Date End Date Anna Hollis MD [address] [place] [phone] PCP - General Internal Medicine 05/17/21 documented as of this encounter
--- OUTSIDE RECORDS SUMMARY | 2025-02-02 09:57 | XMS_ITS | Encounter Summary ---
Author Organization [employer] Address [address] [place] [address] 7 [place] [address] Care Team Providers Care Pasting Machine Operator Name Role Phone Anna Hollis MD Primary Care Provider [phone] Reason for Referral * Consultation (Routine) - Closed Specialty Diagnoses / Procedures Referred By Contac t Referred To Contact Gastroenterology Diagnoses Gastroesophageal reflux disease without esophagitis H/O gastric bypass Anna Hollis MD [address] [place] [address] Phone: tel: fax: Kiesha Fong MD [address] [place] [address] Phone: tel: fax: Referral ID Status Reason Start Date Expiration Date V isits Requested Visits Authorized [id number] Closed Specialty Services Required 09/12/2024 09/12/2025 1 1 Encounter Details Date Type Department Care Team (Late st Contact Info) Description 09/09/2024 Orders Only [facility] CHC MED & PEDS 505 [place], [place] [phone] Anna Hollis MD 505 [place], [place] [phone] Gastroesophageal reflux disease without esophagitis (Primary Dx); [...] as of this encounter Plan of Treatment Scheduled Referrals Name Type Priority Associated Diagnoses [...] documented as of this encounter Care Teams Pasting Machine Operator Relationship Specialty Start Date End Date Beauzile, Thevenin, MD [address] [place] [address] PCP - General Internal Medicine 05/17/21 documented as of this encounter
--- OUTSIDE RECORDS SUMMARY | 2025-02-02 09:57 | XMS_ITS | Encounter Summary ---
Author Organization [employer] Address [address] [facility] 7t [place] [address] Care Team Providers Care Benefit Authorizer Name Role Phone Anna Hollis MD Primary Care Provider [phone] Reason for Visit * Reason Comments Med Change Request Encounter Details Date Type Department Care Team ([facility] Contact Info) Description 12/11/2024 Refill [facility] CHC MED & PEDS [address] [place], [place] [phone] Anna Hollis MD 505 [place] [address] Epigastric pain Social History Tobacco Use Types [...] documented as of this encounter Care Teams Benefit Authorizer Relationship Specialty Start Date End Date Anna Hollis MD [address] [place] [address] PCP - General Internal Medicine 05/17/21 documented as of this encounter
--- OUTSIDE RECORDS SUMMARY | 2025-02-02 09:57 | XMS_ITS | Encounter Summary ---
Author Organization [employer] Address 75 [facility] 7t [place] [address] Care Team Providers Care Supervisor Assembly Room Name Role Phone Anna Hollis MD Primary Care Provider [phone] Encounter Details Date Type Department Care Team ([facility] st Contact Info) Description 08/27/2023 Orders Only [facility] CHC MED & PEDS [address] [place], [place] [phone] Anna Hollis MD 505 [place], [place] [phone] Normocytic anemia (Primary Dx) Social History Tobacco [...] Vitamin B12 386 200 - 900 pg/mL [facility] Comment:NORMAL 200-900 PG/ML INDETERMINATE 160-199 PG/ML DEFICIENT < 160 PG/ML Folate 6.2 > or = 4.0 ng/mL [facility] Comment:Reference Values:> o r = 4.0 ng/mL< 4.0 ng/mL suggests folate deficiency Methotrexate, aminopterin and folinic acid(leucovorin) are chemotherapeutic agents whose molecularstructures are similar to folate; therefore, the Architectfolate assay cannot be used for patients using these drugs. 08/31/2023 11:0 8 AM EDT 08/31/2023 2:43 PM EDT us Anna Hollis MD LAB BLOOD ORDERABLES Final Result [facility] [address] [place] [phone] * (ABNORMAL) Iron And Total Iron Binding Capacity (08/31/2023 11:08 AM EDT) Iron 37 30 - 160 mcg/dL [facility] Total Iron Binding Capacity 326 228 - 428 mcg/dL [facility] Percent Iron Saturation 11(L) 15 - 50 % [facility] Unsaturated Iron Binding 289 ug/dL [facility] Blood Venous blood specimen / Unknown 08/31/2023 11:08 AM EDT 08/31/2023 2:43 PM EDT us Anna Hollis MD LAB BLOOD ORDERABLES Final Result Performing Organization Address [facility]/ZIP Co de Phone Number [facility] [address] [place] [phone] * Ferritin (08/31/2023 11:08 AM EDT) Ferritin 19 10 - 250 ng/mL [facility] Blood Venous blood specimen / Unknown 08/31/2023 11:08 AM EDT 08/31/2023 2:43 PM EDT us Anna Hollis MD LAB BLOOD ORDERABLES Final Result Performing Organization Address City/[facility]/ZIP Co de Phone Number [facility] [address] [place] [phone] documented in this encounter Visit Diagnoses Diagnosis Normocytic anemia- Primary Unspecified anemia documented in this encounter Additional Health Concerns Assessment Noted Time PHQ-9 Depression Total Score: 0 06/12/19 23 2:47 PM EST documented as of this encounter Care Teams Supervisor Assembly Room Relationship Specialty Start Date End Date Anna Hollis MD 505 [place] [address] PCP - General Internal Medicine 05/17/21 documented as of this encounter
--- OUTSIDE RECORDS SUMMARY | 2025-02-02 09:58 | XMS_ITS | Clinical Summary ---
Author Organization [employer] Address [address] [place] [address] Care Team Providers Care Softball Umpire Name Role Phone Anna Hollis MD Primary Care Provider [phone] Allergies Active Allergy Reactions Criticality Noted Date [...] complication, without long-term current use of insulin ([facility]) USE 1 BY TO SKIN ROUTE EVERY [...] MG SL tabletIndications :Coronary artery disease involving [place] heart without angina pectoris, unspecified vessel or [...] 024 Active Blood Glucose Monitoring Suppl (FreeStyle [place] Lite) w/Device kitIndications:Ty pe 2 diabetes mellitus without complication, without long-term current use of insulin ([facility]) Use to test blood sugar 2 times daily 1 kit 024 Active triamcinolone (Kenalog) 0.1 % creamIndications: Dry skin Apply topically 2 times daily. 80 g 11 024 Active hydroquinone 4 % creamIndications: Hyperpigmentation APLIQUE AL AREA AFECTADA DOS VECES AL MEY 85.05 g 024 Active losartan (Cozaar) 50 MG tabletIndications [...] complication, without long-term current use of insulin (CMS/HCC) TOME BRIANNA TABLETA DOS VECES AL MEY CON LAS COMIDAS EN LA MANANA & EN LA NOCHE 60 tablet 11 025 Active ammonium lactate (Lac-Hydrin) 12 % lotionIndications :Dry skin dermatitis Apply topically if needed for dry skin. 400 g 11 025 2025 Active sertraline (Zoloft) 100 MG [...] daily. 60 tablet 11 025 2025 Active atorvastatin (Lipitor) 40 MG tabletIndications :Type 2 diabetes mellitus without complication, without long-term current use of insulin ([facility]) TAKE 1 TABLET BY MOUTH EVERY DAY 90 tablet 3 025 Active senna (Senokot) 8.6 MG tabletIndications :Other constipation TAKE 1 TABLET BY MOUTH 2 TIMES EVERY DAY NEEDED FOR CONSTIPATION 180 tablet 3 025 Active topiramate (Topamax) 25 MG tabletIndications :Depressive disorder TAKE 1 TABLET BY MOUTH TWICE A DAY 180 tablet 3 025 Active omeprazole (PriLOSEC) [address] capsuleIndication s:Epigastric pain TAKE 1 CAPSULE BY MOUTH TWICE A DAY 60 capsule 1 025 Active metoprolol succinate XL (Toprol-XL) 100 MG 24 hr tabletIndications :Primary hypertension TAKE 1 TABLET BY MOUTH TWICE A DAY 180 tablet 025 Active topiramate (Topamax) 25 MG tabletIndications :Depressive disorder TOME BRIANNA TABLETA DOS VECES AL MEY 180 tablet 3 024 2024 Discontinued metoprolol succinate XL (Toprol-XL) 100 MG 24 hr tabletIndications :Primary hypertension TOME 1 TABLETA POR VIA ORAL DOS VECES AL MEY 180 tablet 025 2024 Discontinued(R eorder (will not trigger notification to Pharmacy)) omeprazole (PriLOSEC) [address] capsuleIndication s:Epigastric pain TAKE 1 CAPSULE BY MOUTH TWICE A DAY 60 capsule 1 025 2024 Discontinued traMADol (Ultram) 50 MG tabletIndications :Bilateral hip pain Take 1 tablet (50 mg) by mouth Once per day. 30 tablet 025 2024 Active Problems Problem Noted Date Diagnosed Date [...] her feelings. She will be connected to services (OP therapy and psychiatry), clinician will also follow-up to provide additional support. Depression 09/13/2023 Overview (09/13/2023): -refuses MH therapy or Psychiatrist H/O gastric bypass 09/13/2023 Varicose veins of both lower extremities 024 Assessment & Plan (09/04/2023 9:38 PM EDT): Bilateral varicose veins, reports that she has pain in her legs for a while referral sent to [facility]. Hyperpigmentation 08/31/2023 Assessment & Plan (09/04/2023 9:41 PM EDT): Diffuse hyperpigmentation from face to legs, chronic for more then 10 yrs, Referred to sports medicine trainer at [facility]. -Prescribed Hydroquinone 4% cream Osteoporosis 04/27/2023 [...] 06/09/2022 Overview (06/09/2022): MRI 2015 ordered by [facility]: Articular surface partial tears in the supraspinatus [...] 05/17/2021 Hypertensive disorder 05/17/2021 Leiomyoma 05/17/2021 Encounters Date Type Department Care Team Description 01/12/2025 Results Follow-Up [facility] [address] [place] [address] Maura Wu RN XR Knee 3 Views Bilateral 01/12/2025 Refill [facility] [address] [place] [phone] Anna Hollis MD Epigastric pain 01/11/2025 Refill [facility] [address] [place], [place] [phone] Anna Hollis MD Primary hypertension 01/10/2025 Refill [facility] [address] [place] [address] Anna Hollis MD Depressive disorder; Primary hypertension 01/09/2025 Results Follow-Up [facility] [address] [place], [place] [phone] Mary Grace Carney MD XR Hip 2 or 3 Views Right 01/08/2025 3:30 PM EDT Office Visit [facility] [address] [place], [place] [phone] Anna Hollis MD Primary hypertension (Primary Dx); Type 2 diabetes mellitus without complication, without long-term current use of insulin ([facility]); Bilateral hip pain 01/08/2025 Travel 12/22/2024 Orders Only [facility] [address] [place], [place] [phone] ProviderDarren MD 12/11/2024 1:45 PM EDT Office Visit [facility] [address] [place], [place] [phone] Mary Grace Carney MD Bilateral hip pain (Primary Dx); Type 2 diabetes mellitus without complication, without long-term current use of insulin (CMS/HCC) 12/11/2024 Travel 12/11/2024 Refill [facility] [address] [place], [place] [phone] Anna Hollis MD Epigastric pain 12/09/2024 Telephone [facility] [address] [place], [place] [phone] Anna Hollis MD Nurse Triage 12/08/2024 Telephone [facility] [address] [place], [place] [phone] Anna Hollis MD No Show 11/17/2024 Orders Only GENERIC EXTERNAL DATA DEPARTMENT Provider, Generic External Data 11/11/2024 Refill [facility] [address] [place] [address] Anna Hollis MD Epigastric pain from Last 3 Months Immunizations Immunization Administration [...] is your housing situation today? I have karlakenneth montalvo 08/25/[address] you [...] Sign Reading Time Taken Comments Blood Pressure 122/68 01/08/2025 3:35 PM EDT Pulse 74 01/08/2025 3:35 PM EDT Temperature 36.6 C (97.8 F) 01/08/2025 3:35 PM EDT Respiratory Rate 12 01/08/2025 3:35 PM EDT Oxygen Saturation 99% 01/08/2025 3:35 PM EDT Inhaled Oxygen Concentration - - Weight 78.5 kg (173 lb) 01/08/2025 3:35 PM EDT Height 152.4 cm (5') 01/08/2025 3:35 PM EDT Body Mass Index 33.79 01/08/2025 3:35 PM EDT Plan of Treatment Health Maintenance Due Date Last Done Comments CT Colonography 1960 FIT DNA/Cologuard 1960 FIT 1960 FOBT 1960 Sigmoidoscopy 1960 Hepatitis C Screening 1976 RSV Patients and Patients Aged 60 years or older (1 - Risk 60-74 years 1-dose series) 2018 Zoster Vaccines (2 of 2) 09/09/2019 07/15/2019 Diabetes: Urine Protein Screening 05/18/2022 05/18/2021 Lipid Panel 05/18/2022 05/18/2021 COVID-19 Vaccine ( season) 2025 Influenza Vaccine (#1) 2025 7, 03/18/2015, 02/03/2014, Additional history exists Depression Monitoring 04/02/2025 09/30/2024, 025 Diabetes: Hemoglobin A1C 04/10/2025 025, 08/25/2024, 04/08/2024, Additional history exists Mammogram 04/24/2025 04/24/2023, 07/02/2021 Alcohol/Substance Use Screening 06/05/2025 06/05/2024 Eye Exam 06/05/2025 06/05/2023 SDOH Screening 08/25/2025 08/25/2024 DTaP/Tdap/Td Vaccines (1 - Tdap) 01/08/2026 06/08/2010 Postponed from 06/09/2010 (Patient Refused) Diabetes: Foot Exam 01/08/2026 01/08/2025 Pneumococcal Vaccine: 50+ Years (2 of 2 - PCV) 01/08/2026 06/24/2010 Postponed from 06/24/2011 (Patient Refused) Tobacco Screening 01/08/2026 01/08/2025 Colonoscopy 08/04/2029 08/04/2022 Colorectal Cancer Screening 08/04/2029 Cervical Cancer Screening [...] Procedure Name Priority Date/Time Associated Diagnosis Comments XR KNEE 3 VIEWS BILATERAL Routine 01/09/2025 2:58 PM EDT XR HIP 2 OR 3 VIEWS RIGHT Routine 01/09/2025 2:58 PM EDT Bilateral hip pain POCT GLYCATED HEMOGLOBIN, TOTAL Routine 01/08/2025 3:38 PM EDT Type 2 diabetes mellitus without complication, without long-term current use of insulin (CMS/HCC) POCT GLUCOSE Routine 01/08/2025 3:37 PM EDT Type 2 diabetes mellitus without complication, without long-term current use of insulin (CMS/HCC) POCT GLUCOSE Routine 12/11/2024 1:57 PM EDT Type 2 diabetes mellitus without complication, without long-term current use of insulin (CMS/HCC) TISSUE TRANSGLUTAMINASE AB, IGA Routine 11/17/2024 11:26 AM EDT IMMUNOGLOBULIN A Routine 11/17/2024 11:2 6 AM EDT TSH W/REFLEX TO FT4 Routine 11/17/2024 1 1:26 AM EDT FERRITIN Routine 11/17/2024 11:26 AM EDT IRON AND TOTAL IRON BINDING CAPACITY Routine 11/17/2024 11:26 AM EDT CBC Routine 11/17/2024 11:26 AM EDT BI MAMMOGRAM SCREENING TOMOSYNTHESIS BILATERAL Routine 04/24/2023 2:40 PM EST HM COLONOSCOPY Routine 08/04/2022 2:27 PM EDT THINPREP IMAGING PAP AND HPV MRNA E6/E7 WITH REFLEX TO HPV 16,18/45 Routine 01/25/2022 3:09 PM EDT ALBUMIN, RANDOM URINE W/CREATININE Routine 05/18/2021 10:12 AM EST LIPID PANEL, STANDARD Routine 05/18/2021 10:12 AM EST from Last 3 Months or Most Recently Relevant to Health Maintenance Results * XR Knee 3 Views Bilateral (01/09/2025 2:58 PM EDT) Anatomical Region Laterality Modality Lower Extremities, Knee Bilateral Radiogra phic Imaging 01/09/2025 2:58 PM EDT Narrative 01/09/2025 3:21 PM EDT [address] [address] XRay Report Signed Patient: Samantha Tuttle MR#: [id number] 99 : 1960 Acct:[id number] Age/Sex: 64 / F ADM Date: 01/09/25 Loc: [place] Attending Dr: Mayr Grace Carney MD Ordering Physician: Anna Hollis MD Date of Service: 01/09/25 Procedure(s): XR Knee Yasir 3V Accession Number(s): [id number] cc: Anna Hollis MD EXAMINATION: XR KNEE BILATERAL CLINICAL INFORMATION: b/l knee pain COMPARISON: None available. TECHNIQUE: AP view in standing position both knees. Lateral views both knees. FINDINGS: No acute cortical disruption or malalignment. Mild joint space narrowing involving medial lateral compartment. No gross suprapatellar bursa joint effusion. No lytic or blastic lesions. Osteopenia versus osteoporosis. XR/XR Knee Yasir 3V IMPRESSION: Mild bicompartmental osteoarthrosis/osteoarthritis. Electronically signed by: Tanner Phillips MD 01/09/2025 03:18 PM EDT Dictated By: Tanner Silvestre MD Signed By: <Electronically signed by Tanner Womack MD in OV> 01/09/25 1518 DD/ 1458 TD/TT: 01/09/25 1509 Back End Architect: Procedure Note Donotuseinterpreter, Image - 01/09/[address] [address] XRay Report Signed Patient: Kerry TuttleR#: [id number] [birth year] : 8Acct:[id number] Age/Sex: 64 / FADM Date: 01/09/25 Loc: HO.XRAY Attending Dr: Mary Grace Carney MD Ordering Physician: Anna Hollis MD Date of Service: 01/09/25 Procedure(s): XR Knee Yasir 3V Accession Number(s): [id number] cc: Anna Hollis MD EXAMINATION: XR KNEE BILATERAL CLINICAL INFORMATION: b/l knee pain COMPARISON: None available. TECHNIQUE: AP view in standing position both knees. Lateral views both knees. FINDINGS: No acute cortical disruption or malalignment. Mild joint space narrowing involving medial lateral compartment. No gross suprapatellar bursa joint effusion. No lytic or blastic lesions. Osteopenia versus osteoporosis. XR/XR Knee Yasir 3V IMPRESSION: Mild bicompartmental osteoarthrosis/osteoarthritis. Electronically signed by: Tanner Phillips MD 01/09/2025 03:18 PM EDT Dictated By: Tanner Silvestre MD Signed By: <Electronically signed by Tanner Womack MDin OV> 01/09/25 1518 DD/ 1458 TD/TT: 01/09/25 1509 Back End Architect: us Anna Hollis MD IMG XR PROCEDURES Final Res ult * XR Hip 2 or 3 Views Right (01/09/2025 2:58 PM EDT) Anatomical Region Laterality Modality Lower Extremities, Hip Right Radiograp hic Imaging 01/09/2025 2:58 PM EDT Narrative 01/09/2025 3:19 PM EDT [address] [address] XRay Report Signed Patient: Samantha Tuttle MR#: [id number] 99 : 1960 Acct:[id number] Age/Sex: 64 / F ADM Date: 01/09/25 Loc: HO.XRAY Attending Dr: Mary Grace Carney MD Ordering Physician: Mary Grace Carney MD Date of Service: 01/09/25 Procedure(s): XR hip RT min 2V Accession Number(s): [id number] cc: Anna Hollis MD; Mary Grace Carney MD EXAMINATION: XR HIP, RIGHT CLINICAL INFORMATION: pain COMPARISON: None available. TECHNIQUE: AP and oblique views of the right hip. FINDINGS: No acute cortical disruption or malalignment. Sclerosis along the reticular surface of the acetabulum. Asymmetric joint space narrowing. Sclerosis and the sacroiliac joint. No lytic or blastic lesions. XR/XR hip RT min 2V IMPRESSION: Mild osteoarthrosis/osteoarthritis, right hip. Sacroiliitis, right-sided. Electronically signed by: Tanner Phillips MD 01/09/2025 03:16 PM EDT RP Dictated By: Tanner Silvestre MD Signed By: <Electronically signed by Tanner Womack MD in OV> 01/09/25 1516 DD/ 1458 TD/TT: 01/09/25 1509 Back End Architect: Procedure Note Donotuseinterpreter, Image - 01/09/[address] [address] XRay Report Signed Patient: Rani Tuttle#: [id number] [birth year] : 8Acct:[id number] Age/Sex: 64 / FADM Date: 01/09/25 Loc: HO.XRAY Attending Dr: Mary Grace Carney MD Ordering Physician: Mary Grace Carney MD Date of Service: 01/09/25 Procedure(s): XR hip RT min 2V Accession Number(s): [id number] cc: Anna Hollis MD; Mary Grace Carney MD EXAMINATION: XR HIP, RIGHT CLINICAL INFORMATION: pain COMPARISON: None available. TECHNIQUE: AP and oblique views of the right hip. FINDINGS: No acute cortical disruption or malalignment. Sclerosis along the reticular surface of the acetabulum. Asymmetric joint space narrowing. Sclerosis and the sacroiliac joint. No lytic or blastic lesions. XR/XR hip RT min 2V IMPRESSION: Mild osteoarthrosis/osteoarthritis, right hip. Sacroiliitis, right-sided. Electronically signed by: Tanner Phillips MD 01/09/2025 03:16 PM EDT RP Dictated By: Tanner Silvestre MD Signed By: <Electronically signed by Cristian Jolley OV> 01/09/25 1516 DD/ 1458 TD/TT: 01/09/25 1509 Back End Architect: Mary rGace Carney MD IMG XR PROCEDURES Final Result * (ABNORMAL) POCT A1c (01/08/2025 3:38 PM EDT) Hemoglobin A1C 7.6(A) 4.0 - 5.7 % QC Media Lot # Comment:[id number] Lot# Expiration Date Comment:08/25/2026 Blood 01/08/2025 3:38 PM EDT us Anna Hollis MD POINT OF CARE TEST ENTER/ED IT ORDERABLES Final Result * POCT glucose manually resulted (01/08/2025 3:37 PM EDT) Only the most recent of2 resultswithin the time period is included. Glucose Blood, POC 164 60 - 200 mg/dL QC Media Lot # Comment:[id number] Lot# Expiration Date Comment:05/09/2025 Blood Capillary blood specimen / Unknown 01/08/2025 3:37 PM EDT us Anna Hollis MD POINT OF CARE TEST ENTER/ED IT ORDERABLES Final Result * TSH with Reflex to Free T4 (11/17/2024 11:26 AM EDT) TSH reflex Free T4 0.61 0.32 - 4.0 uIU/mL [facility] 11/17/2024 11:2 6 AM EDT 11/17/2024 11:26 AM EDT Generic External Data Provider LAB BLOOD ORDERAB LES Final Result Performing Organization Address [facility] de Phone Number [facility] [address] [place] [phone] * (ABNORMAL) Iron And Total Iron Binding Capacity (11/17/2024 11:26 AM EDT) Pathologist [facility] Iron 42 30 - 160 mcg/dL [facility] Total Iron Binding Capacity 349 228 - 428 mcg/dL [facility] Percent Iron Saturation 12(L) 15 - 50 % [facility] Unsaturated Iron Binding 307 ug/dL [facility] 11/17/2024 11:2 6 AM EDT 11/17/2024 11:26 AM EDT Generic External Data Provider LAB BLOOD ORDERAB LES Final Result Performing Organization Address [facility] [address] [place] [phone] * Tissue Transglutaminase Antibody, IgA (11/17/2024 11:26 AM EDT) [facility] Transglutaminase IgA <1.0 U/mL [facility] Comment:Value Interpretation ----- <15.0 Antibody not detected> or = 15.0 Antibody detectedTHIS TEST WAS PERFORMED AT:[facility] [address] [phone] MURO MD 11/17/2024 11:2 6 AM EDT 11/17/2024 11:26 AM EDT Generic External Data Provider LAB BLOOD ORDERAB LES Final Result Performing Organization Address [facility] de Phone Number [facility] [address] [place] [phone] * (ABNORMAL) CBC (11/17/2024 11:26 AM EDT) White Blood Count 8.2 4.8 - 10.8 X10*3/uL [facility] Red Blood Count 4.78 4.20 - 5.50 X10*6/uL [facility] Hemoglobin 12.1 12.0 - 16.0 g/dl [facility] Hematocrit 39.1 37.0 - 47.0 % [facility] Mean Corpuscular Volume 81.8 80.0 - 98.0 fL [facility] Mean Corpuscular Hemoglobin 25.3(L) 27.0 - 33.0 pg [facility] Mean Corpuscular HGB Conc 30.9(L) 31.0 - 35.0 g/dl [facility] Red Cell Distribution Width 14.6 11.0 - 16.0 % [facility] Platelet Count 180 160 - 400 X10*3/uL [facility] Mean Platelet Volume 11.5 9.4 - 12.3 fL [facility] NRBC Pct Auto 0.0 0.0 - 0.2 /100WBC [facility] NRBC Abs Auto 0.000 0.0 - 0.012 X10*3/uL [facility] 11/17/2024 11:2 6 AM EDT 11/17/2024 11:26 AM EDT us Generic External Data Provider LAB BLOOD ORDERAB LES Final Result Performing Organization Address City/State/[facility] Co de Phone Number [facility] [address] [place] [phone] * (ABNORMAL) Immunoglobulin A (11/17/2024 11:26 AM EDT) Immunoglobulin A, Qn, Serum 339(A) 70 - 320 mg/dL [facility] Comment:THIS TEST WAS PERFOR MED AT:[email or web address] [place] [phone] MURO MD 11/17/2024 11:2 6 AM EDT 11/17/2024 11:26 AM EDT us Generic External Data Provider LAB BLOOD ORDERAB LES Final Result Performing Organization Address City/[facility]/ZIP Co de Phone Number [facility] [address] [place] [phone] * Ferritin (11/17/2024 11:26 AM EDT) Ferritin 22 10 - 250 ng/mL [facility] 11/17/2024 11:2 6 AM EDT 11/17/2024 11:26 AM EDT Generic External Data Provider LAB BLOOD ORDERAB LES Final Result Performing Organization Address [facility] Co de Phone Number [facility] [address] [place] [phone] * BI Mammogram Screening Tomosynthesis Bilateral (04/24/2023 2:40 PM EST) Anatomical Region Laterality Modality Breast Bilateral Mammography 04/24/2023 2:40 PM EST Narrative 05/17/2023 4:21 AM EST [address] [place] [address] Mammography Report Signed Patient: Samantha Tuttle MR#: [id number] 99 : 1960 Acct:[id number] Age/Sex: 62 / F ADM Date: 04/24/23 Loc: [place] Attending Dr: Kalin Strange CNM Ordering Physician: KALIN STRANGE CNM Results: 1 Negative Date of Service: 04/24/23 Follow Up: 1 Year From [facility] in[facility] Mammogram Procedure(s): MM tomosynthesis screening BI Accession Number(s): [id number] cc: Anna Hollis MD; KALIN STRANGE CNM EXAMINATION: MM SCREENING DIGITAL BREAST TOMOSYNTHESIS, BILATERAL CLINICAL INFORMATION: Screening. Asymptomatic. COMPARISON: Mammography: This study is compared with prior exams dating back to 2014. TECHNIQUE: Digital breast tomosynthesis is performed in [...] in OV> 05/17/23 0417 DD/ 144 TD/TT: Back End Architect: Procedure Note Donotuseinterpreter, Image - 05/17/2023 [facility] [address] [place] [address] Mammography Report Signed Patient: Rani Tuttle#: [id number] 99 : 8Acct:[id number] Age/Sex: 62 / FADM Date: 04/24/23 Loc: [facility]ER[facility] Attending Dr: Kalin Strange CNM Ordering Physician: KALIN STRANGEesults: 1 Negative Date of Service: 04/24/23Follow Up: 1 Year From Orig inal Mammogram Procedure(s): MM tomosynthesis screening BI Accession Number(s): [id number] cc: Anna Hollis MD; KALIN STRANGE CNM [...] in OV> 05/17/23 0417 DD/ 1440 TD/TT: Back End Architect: Kalin Strange CN IMG BI PROCEDURES Edited Result - Final * Hm Colonoscopy (08/04/2022 2:27 PM EDT) Historical Provider HEALTH MAINTENANCE Final Result * THINPREP TIS PAP AND HPV mRNA E6/E7 WITH REFLEX TO HPV 16,18/45 (01/25/2022 3:09 PM EDT) Clinical Information: [facility] COMMENT SEE COMMENT [facility] Comment: EXPLANATORY NOTE: The Pap is a screening test for cervical cancer. It is not a diagnostic test and is subject to false negative and false positive results. It is most reliable when a satisfactory sample, regularly obtained, is submitted with relevant clinical findings and history, and when the Pap result is evaluated along with historic and current clinical information. COMMENT: This Pap test has been evaluated with computer assisted technology. [employer] [facility] Cytotechnologis t: SEE COMMENT [facility] Comment: MXD, CT (ASCP) CT screening location: [place] [address] HPV nRNA E6/E7 Not Detected Not Detected [facility] Comment: Methodology: [employer]per-Mediated Amplification This assay detects E6/E7 viral messenger RNA (mRNA) from 14 high-risk HPV types (16,18,31,33,35,39,45,51,52,56,58,59,66,68). Cervical sources are required for HPV testing. If a vaginal source from a patient who has had a total hysterectomy with removal of cervix was submitted, please contact the testing laboratory for alternative testing options. For additional information, please refer to http://education.TripsByTips/faq/UTW065u5 (This link if provided for information/ educational purposes only.) Interpretation/ Result: Negative for intraepithelial lesion or malignancy. [facility] LMP: [facility] Prev. BX: NONE GIVEN [facility] Prev. PAP: NONE GIVEN [facility] SOURCE: None given [facility] Statement Of Adequacy: SEE COMMENT [facility] Comment: Satisfactory for evaluation. Endocervical/transformation zone component absent. 01/25/2022 3:09 PM EDT Kalin Strange CNM LAB PATHOLOGY ORDERABLES Final Result Performing Organization Address [facility] de Phone Number [facility] [address] * ALBUMIN, RANDOM URINE W/CREATININE (05/18/2021 10:12 AM EST) Microalbumin Urine 0.5 See Note: mg/dL [facility] Comment: Reference Range: Reference Range Not established Microalb/Creat Ratio 4 <30 mcg/mg creat [facility] Comment: The ADA defines abnormalities in albumin excretion as follows: Albuminuria Category Result (mcg/mg creatinine) Normal to Mildly increased <30 Moderately increased 30-299 Severely increased > OR = 300 The ADA recommends that at least two of three specimens collected within a 3-6 month period be abnormal before considering a patient to be within a diagnostic category. Creatinine, Urine 133 20 - 275 mg/dL [facility] 05/18/2021 10:1 2 AM EST Zaheer Lan MD LAB URINE ORDERABL ES Final Result Performing Organization Address [facility] de Phone Number [facility] [address] * (ABNORMAL) LIPID PANEL, STANDARD (05/18/2021 10:12 AM EST) Chol/HDLC Ratio 4.1 <5.0 (calc) [facility] Cholesterol, Total 138 <200 mg/dL [facility] HDL Cholesterol 34(L) > OR = 50 mg/dL [facility] LDL Cholesterol 74 mg/dL (calc) [facility] Comment: Reference range: <100 Desirable range <100 mg/dL for primary prevention; <70 mg/dL for patients with CHD or diabetic patients with > or = 2 CHD risk factors. LDL-C is now calculated using the Davin calculation, which is a validated novel method providing better accuracy than the Friedewald equation in the estimation of LDL-C. Turner SS et al. BARRERA. 2013;310(19): 8443-3671 (http://education.AGC/faq/SUF815) Non-HDL Cholesterol 104 <130 mg/dL (calc) [facility] Comment: For patients with diabetes plus 1 major ASCVD risk factor, treating to a non-HDL-C goal of <100 mg/dL (LDL-C of <70 mg/dL) is considered a therapeutic option. Triglycerides 206(H) <150 mg/dL [facility] Comment: If a non-fasting specimen was collected, consider repeat triglyceride testing on a fasting specimen if clinically indicated. Tino et al. J. of Clin. Lipidol. 2015;9:129-169. 05/18/2021 10:1 2 AM EST Zaheer Lan MD LAB BLOOD ORDERABL ES Final Result [facility] [address] from Last 3 Months or Most Recently Relevant to Health Maintenance Insurance STANDARD [facility] LONGTERM OPTIONS (HMO D-SNP) [facility] STANDARD * Guarantor: Tuttle, Samantha Account Type Relation to Patient Date of Phone Billing Address Personal/Family Self [phone] ([address] [address] Care Teams Softball Umpire Relationship Specialty Start Date End Date Anna Hollis MD [address] [place] [id number] PCP - General Internal Medicine 05/17/21
--- OUTSIDE RECORDS SUMMARY | 2025-02-02 09:58 | XMS_ITS | Encounter Summary ---
Author Organization [employer] Address [address] [facility] [address] [place] [address] Care Team Providers Care Civil Engineering Design Draftsperson Name Role Phone Anna Hollis MD Primary Care Provider [phone] Encounter Details Date Type Department Care Team ([facility] st Contact Info) Description 10/11/[address] [facility] [address] [place], [place] [phone] Anna Hollis MD [address] [place], [place] [phone] Social History Tobacco Use Types Packs/Day Years Used Date Smoking Tobacco: Never Passive Smoke Exposure: Never Smokeless Tobacco: Never Alcohol Use Standard Drinks/Week Comments Never 0 (1 standard drink = 0.6 oz pur e alcohol) Depression Answer Date Recorded Patient Health Questionnaire-9 Score 0 06/12/2022 Housing Stability Answer Date Recorded What is your housing situation today? I have karlakenneth montalvo 08/02/[address] you [...] documented as of this encounter Care Teams Civil Engineering Design Draftsperson Relationship Specialty Start Date End Date Anna Hollis MD [address] [place] [address] PCP - General Internal Medicine 05/17/21 documented as of this encounter
--- OUTSIDE RECORDS SUMMARY | 2025-02-02 09:58 | XMS_ITS | Encounter Summary ---
Author Organization [employer] Address [address] [facility] [address] [place] [address] Care Team Providers Care Supply Assistant Name Role Phone Anna Hollis MD Primary Care Provider [phone] Reason for Visit * Reason Onset Date Comments Nurse Triage 10/11/2023 Encounter Details Date Type Department Care Team ([facility] st Contact Info) Description 10/11/2023 Telephone [facility] [address] [place] [address] Anna Hollis MD [address] [place] [address] Nurse Triage Social History Tobacco Use Types [...] pt to triage, spoke to pt through [employer] administrative supervisor. pt states has been without her [employer] [...] care if severe symptoms. will task to [facility] team nurses to address need to change [...] accepted this outcome Please contact pt at [phone] (retrieval specialist) documented in this encounter Plan of Treatment Not on file documented as of this encounter Visit Diagnoses Diagnosis Acquired hypothyroidism Unspecified hypothyroidism documented in this encounter Additional Health Concerns Assessment Noted Time PHQ-9 Depression Total Score: 0 06/12/19 23 2:47 PM EST documented as of this encounter Care Teams Supply Assistant Relationship Specialty Start Date End Date Anna Hollis MD [address] [place] [id number] PCP - General Internal Medicine 05/17/21 documented as of this encounter
== END 2025-02-02 08:42 | disposition home or self-care (01) ==
LOC: HO.HOSX 08:41
DX: Z13.89 Encounter for screening for other disorder (principal)